=== PATIENT | female | born 1990 | race Caucasian/White ===

== ENCOUNTER → 2018-03-16 10:23 | Outpatient (CLI) | payer OTHER, SELFPAY ==
[2018-03-16 09:36] VITALS: BMI 32.5
[2018-03-16 11:19] LABS: Absolute Lymphocyte Count 1.86 X10^3/ul (0.83-4.51); Absolute Neutrophil Count 6.1 X10^3/uL (2.0-7.7); Basophil# 0.01 X10^3/uL; Basophil% 0.1 % (0-1); Eosinophil# 0.04 X10^3/uL; Eosinophils% 0.5 % (0-5); Hematocrit 38.1 % (37-47); Hemoglobin 12.9 g/dl (12.0-15.0); Lymphocyte # 1.86 X10^3/ul (4.0); Lymphocyte % 21.3 % (19-41); Mean Corp Hgb Conc 33.9 g/gl (32-36); Mean Corpuscular Hgb 30.6 pg (27.0-32.0); Mean Corpuscular Volume 90.5 fL (81-99); Mean Platelet Vol. 9.9 fl (6.2-12.0); Monocyte# 0.71 X10^3/uL; Monocyte% 8.1 % (0-10); Neutrophil # 6.12 X10^3/uL (2.7-7.7); Neutrophil % 69.9 % (47-70); Platelet Count 219 K/mm3 (150-450); RBC Distribution Width CV 13.3 % (11.6-14.6); RBC Distribution Width SD 43.8 fl (35.1-43.9); Red Blood Count 4.21 M/mm3 (4.2-5.4); White Blood Count 8.8 K/mm3 (4.4-11.0)
[2018-03-16 11:24] LABS: POSITIVE COUNT NO; POSITIVE DIFFERENTIAL NO; POSITIVE MORPHOLOGY NO
[2018-03-16 11:35] LABS: Glucose Challenge Gest 1H 50g 88 mg/dL (70-140)
[2018-03-16 12:40] LABS: HIV - WCH Non-Reactive (Nonreactive); Rubella IgG 100.9 IU/mL
[2018-03-16 20:08] LABS: Chlamydia Trachomatis by PCR Negative (Negative); Neisserai gonorrhoeae by PCR Negative (Negative); Probe Check PASS; Sample Adequacy Control PASS; Specimen Processing Control PASS
[2018-03-17 04:55] LABS: Rapid Plasmin Reagin (RPR) NONREACTIVE (NONREACTIVE)
[2018-03-17 09:16] LABS: HEPATITIS B SURFACE AG Negative (Negative)
[2018-03-21 10:55] LABS: HPV Reflexed? NOT INDICATED
--- OUTSIDE RECORDS SUMMARY | 2018-05-02 05:26 | XMS RPT_ITS ---
:1990 Author Organization OHIP Care Team Providers Name Role Phone Jessica Mejia Attending Unavailable Cebul IIIMahad Referring Unavailable Jessica Mejia Attending Unavailable Cebul IIIMahad Primary Care Unavailable Jessica Mejia Referring Unavailable Bertha Mcgovern Attending Unavailable Cebul IIIMahad Referring Unavailable Bertha Mcgovern Attending Unavailable Mahad Gutierrez III Primary Care Unavailable PROBLEMS PROBLEMS DATE TYPE CONDITION / CODE ATTENDING STATUS SOURCE 04/14/2018 Unknown Z3A.14 - 14 weeks Froilan Active [facility] gestation of [facility] / Hospital Z3A.14(ICD-10) Repository 04/14/2018 Unknown Z34.02 - Froilan, Active [place] Encounter for General acute hospital normal first Repository , second trimester / Z34.02(ICD-10) 03/16/2018 Unknown Z34.90 - Jessica Mejia Active [place] Encounter for [facility] supervision of Hospital normal , Repository unspecified, unspecified trimester / Z34.90(ICD-10) 03/16/2018 Unknown Z68.32 - Body [place], Jessica Active [place] mass index (BMI) [facility] 32.0-32.9, critical access hospital Hospital / Z68.32(ICD-10) Repository PROCEDURES PROCEDURES No Procedure Records FoundRESULTS RESULTS ANTIBODY SCREEN Collected: 04/14/2018 Status: F Source: WARNER 10:38 AM [facility] REPOSITORY TYPE CODE TESTS RESULT OUT OF RANGE REFERENCE UNITS LAB B100.4000 Normal Antibody NEGATIVE Screen Performed By: #### B100.4000 #### [facility] [address] [place], [address] TIME CLOCK MECHANIC OFFICE VISIT Observed: 04/14/2018 Status: F Source: WARNER REPORT 10:24 AM [facility] REPOSITORY [facility] [address] [place] [address] OFFICE VISIT Date of Service: 04/14/18 MR#: [id number] Acct: [id number] Name: ELISE RAY Rep #: [id number] : 1990 Provider: Bertha Mcgovern MD Age/Sex: 27/F [place] [facility] [place]: Signed Intake Vital Signs04/14/18 Body Mass Index (BMI) 32.5 04/14/18 Height 5 ft 7 in 04/14/18 Weight: 213 lb 04/14/18 Body Mass Index (BMI) 33.3 04/14/18 Blood Pressure 122/78 H Intake Visit Reasons: 14 WEEK OB Chief Complaint: est ob Cigarette Tipper Required: No Is patient in pain?: No Allergies No Known Allergies Allergy (Verified 04/14/18 09:47) Medications vitamin#30 30 mg iron-10 mg iron-folic acid 1 mg- omg3 capsule cap PO cap 03/16/18 [History Confirmed 04/14/18] Last Menstral Period: 01/02/18 Zika: Zika virus screening: Negative : No PFSH PFSH Surgical History History of appendectomy (Acute) Family History Grandfather Cancer bone Father Anemia Social History Smoking Status: Never smoker alcohol intake: never substance use type: does not use caffeine: No what type of physical activity do you participate in: walking seatbelt use: always do you feel safe at home: Yes 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 unable to give urine specimen for 2 dip OB Visit SURI Calculator Estimated Delivery Date 10/09/18 Based on Ultrasound Date 03/16/18 Current WG 14w 4d Number 1 Expected Delivery Route/Plan Specific Issue/Plans flu vaccine: given minichart given: given tdap vaccine: [] rhogam: [] LARC form signed: [] labor support person: Will pain management: [] cut cord/dad catch: [] : [] PP control planned: [] special requests: [] Initial Weight: 208 lb Date Weight BP Urine PrFHR FuHt Pres MoCTX DilationFetal StVisit NoProviderComments E ot v te GA G Effac lucose ed Visit Notes Visit Date: 04/14/18 no vb lof charlene Mcgovern MD on 04/14/18 Visit Date: 03/16/18 No visit notes to display Diagnostics Diagnostics Labs Blood Type A POSITIVE 03/16/18 Antibody Screen NEGATIVE 03/16/18 Hct 38.1 % (37-47) 03/16/18 Hgb 12.9 g/dl (12.0-15.0) 03/16/18 Rubella IgG Antibody 100.9 IU/mL 03/16/18 RPR NONREACTIVE (NONREACTIVE) 03/16/18 Hep Bs Antigen Negative (Negative) 03/16/18 Chlam trachomat DNA PCR Negative (Negative) 03/16/18 N.gonorrhoeae DNA (PCR) Negative (Negative) 03/16/18 Glucose 1 Hr 50 gm 88 mg/dL (70-140) 03/16/18 Details: HIV: Urine Culture: Sequential Screen: NIPT Screen: Assessment AND Plan Problems 1. 14 weeks gestation of Z3A.14 Plans NIPT. MFM anatomy US ordered 2. Encounter for supervision of normal first in second trimester Z34.02 PRR SURI 10/09/18 Spouse Will Plan ACOG trimester education reviewed and updated. see problem list details for updated plan management information and see below for orders placed at this visit. GA appropriate handout given. Coding Level of Care Code OB Routine Diagnoses 14 weeks gestation of Z3A.14 Weeks of gestation: 14 weeks Encounter for supervision of normal first in second trimester Z34.02 Trimester: second trimester 04/14/18 1024 <Electronically signed by Bertha Mcgovern MD> Date Bertha Mcgovern MD Cosigner Signature: Date (if applicable) CC: TIME CLOCK MECHANIC OFFICE VISIT Observed: 03/16/2018 Status: F Source: WARNER REPORT 11:11 AM [facility] REPOSITORY [facility] [address] [place] [address] OFFICE VISIT Date of Service: 03/16/18 MR#: [id number] Acct: [id number] Name: ELISE RAY Chalino Rep #: [id number] : 1990 Provider: BRIGIDO Mejia Age/Sex: 27/F [place] [facility] [place]: Signed Intake Vital Signs03/16/18 Height 5 ft 7 in 03/16/18 Weight: 208 lb 03/16/18 Body Mass Index (BMI) 32.5 03/16/18 Blood Pressure 122/58 H Intake Visit Reasons: NOB - LMP JAN 02 Chief Complaint: NEW OB Cigarette Tipper Required: No Is patient in pain?: No Allergies No Known Allergies Allergy (Unverified 03/16/18 09:36) Medications vitamin#30 30 mg iron-10 mg iron-folic acid 1 mg- omg3 capsule cap PO cap 03/16/18 [History Confirmed 03/16/18] Last Menstral Period: 01/02/18 Zika: Zika virus screening: Negative : No PFSH PFSH Surgical History History of appendectomy (Acute) Family History Grandfather Cancer bone Father Anemia Social History Smoking Status: Never smoker alcohol intake: never substance use type: does not use caffeine: No what type of physical activity do you participate in: walking seatbelt use: always do you feel safe at home: Yes 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 OB Visit SURI Calculator Estimated Delivery Date 10/09/18 Based on Ultrasound Date 03/16/18 Current WG 10w 3d Number 1 Expected Delivery Route/Plan Specific Issue/Plans flu vaccine: given minichart given: given tdap vaccine: [] rhogam: [] LARC form signed: [] labor support person: Will pain management: [] cut cord/dad catch: [] : [] PP control planned: [] special requests: [] Initial Weight: Not Recorded Date Weight BP Urine PrFHR FuHt Pres MoCTX DilationFetal StVisit NoProviderComments E ot v te GA G Effac lucose ed Menstrual History Last Menstral Period: 01/02/18 Reported LMP: definite Normal amount/duration: Yes On hormonal BC at conception: No hCG+: 02/06/18 Antepartum Record Genetic Screening: Congenital Heart Defect: Other, Neural Tube Defect: Other, Hemoglobinopathy Or Carrier: Other, Cystic Fibrosis: Other, Chromosome Abnormality: Other, Gallito-Sachs: Other, Hemophilia: Other, Intellectual Disability/Autism: Other, Recurrent Loss/Stillbirth: Patient (Patient mother stillbirth), Other Structural Defect: Other, Other Genetic Disease: Other, Maternal Metabolic Disorder: Other Infection History: Live with someone with TB or Exposed to TB: No, Patient or Partner has history of Genital Herpes: No, Rash or Viral illness since last mentrual period: No, Prior GBS-Infected child: No, History of STD: No, HIV Infection: No, History of Hepatitis: No, Recent travel outside of [place]: No, Concern for Hep exposure: No, Varicella immune: Yes (had chicken pox) Medical History Medical History: Positive: Operations/hospitalizations (appendix >10 yr ago), Negative: Diabetes, Hypertension, Heart disease, Auto-immune disorder, Kidney disease/UTI, Neurologic/epilepsy, Psychiatric, Depression/ depression, Hepatitis/liver disease, Varicosities/phlebitis, Thyroid dysfunction, Trauma/domestic violence, History of blood transfusions, D (Rh) Sensitized, Pulmonary (e.g.,TB,Asthma), Seasonal allergies, Drug/latex allergies/reactions, Breast, Cemetery Keeper surgery, Anesthetic complications, History of abnormal pap, Uterine anomaly/tamir, Infertility, Anti-retroviral treatment, Relevant family history, Other Comments: Mom with chronic anemia ROS Const Reports as per HPI Card Denies chest pain, Denies shortness of breath Resp Denies shortness of breath GI Denies change in stools Denies difficulty urinating, Denies abnormal vaginal bleeding, Denies vaginal odor, Denies vaginal itching, Denies vaginal discharge Exam Const General: cooperative, healthy appearing, well developed Nutritional Appearance: average body habitus, well nourished Orientation: oriented x3 Neck Neck: normal visual inspection Neck mass: No Thyroid: thyroid normal Chest Chest palpation AND inspection: normal inspection of the chest Breast inspection: normal inspection of the breasts, normal inspection of the axillae Resp Effort AND Inspection: normal respiratory effort GI Inspection: normal to inspection Palpation: soft, nontender, no masses External Female Exam: normal external appearance, normal appearance of the urethra Urethra: normal appearance of the urethra Speculum Exam - Vagina: normal appearance of the vagina, normal vaginal discharge Speculum Exam - Cervix: normal appearance of the cervix, closed cervix, other (thin prep pap with reflex HPV, GCC collected) Bimanual Exam- Vagina AND Uterus: normal bimanual exam, uterine shape normal, uterine size normal (10 weeks) Bimanual Exam- Adnexa, other: normal adnexae, no adnexal masses, adnexae non-tender Other: US per AGA CRL 31.8mm 10w 3d SURI 10/09/18 Skin General: no rashes or lesions noted, turgor normal Assessment AND Plan Problems 1. Encounter for supervision of normal first in first trimester Z34.01 Grav 1 SURI 10/09/18 Spouse Will 2. 10 weeks gestation of Z3A.10 Plans NIPT. MFM anatomy US ordered Orders Orders: Coding Level of Care Code Off vis,new,level 4 Diagnoses Encounter for supervision of normal first in first trimester Z34.01 Trimester: first trimester 10 weeks gestation of Z3A.10 Weeks of gestation: 10 weeks 03/16/18 1111 <Electronically signed by Jessica ZAVALA> Date Jessica ZAVALA Cosigner Signature: Date (if applicable) CC: Observed: 03/16/2018 Status: F Source: ELWELL CULTURE, URINE 11:07 AM [facility] REPOSITORY Urine Culture Culture exhibits no growth. Performed By: #### M100.0650 #### [facility] [place], [address] CBC W/DIFF, AUTOMATED Collected: 03/16/2018 Status: F Source: ELWELL 10:33 AM [facility] REPOSITORY TYPE CODE TESTS RESULT OUT OF RANGE REFERENCE UNITS LAB L100.1000 4.4-11.0 K/mm3 Normal WBC 8.8 LAB L100.1200 4.2-5.4 M/mm3 Normal RBC 4.21 LAB L100.1300 12.0-15.0 g/dl Normal HGB 12.9 LAB L100.1400 37-47 % Normal HCT 38.1 LAB L100.1500 81-99 fL Normal MCV 90.5 LAB L100.1600 27.0-32.0 pg Normal MCH 30.6 LAB L100.1700 32-36 g/gl Normal MCHC 33.9 LAB L100.1810 11.6-14.6 % Normal RDW CV 13.3 LAB L100.1820 35.1-43.9 fl Normal RDW SD 43.8 LAB L100.1900 150-450 K/mm3 Normal PLT 219 LAB L100.2000 6.2-12.0 fl Normal MPV 9.9 LAB L100.2100 47-70 % Normal NEUT% 69.9 LAB L100.2200 19-41 % Normal LY% 21.3 LAB L100.2300 0-10 % Normal MONO% 8.1 LAB L100.2400 0-5 % Normal EO% 0.5 LAB L100.2500 0-1 % Normal BASO% 0.1 LAB L100.2550 0.0-0.9 % Normal IM GRAN % 0.100 Result Comment: IG% - Immature Granulocytes (promyelocytes, myelocytes and metamyelocytes) > 1% indicates that a LEFT SHIFT is Present. LAB L100.2620 2.0-7.7 X10 3/uL Normal Absolute Neut 6.1 LAB L100.2720 0.83-4.51 X10 3/ul Normal Absolute Lymph 1.86 Performed By: #### L100.0100 #### [facility] [address] [place], [place], [address] GLUCOSE CHALLENGE GEST Collected: 03/16/2018 Status: F Source: WARNER 1H 50G 10:33 AM [facility] REPOSITORY TYPE CODE TESTS RESULT OUT OF RANGE REFERENCE UNITS LAB L501.0250 70-140 mg/dL Normal GLU GEST 88 50g 1H Performed By: #### L501.0250 #### [facility] [address] [place], [place], [address] RUBELLA IGG Collected: 03/16/2018 Status: F Source: WARNER 10:33 AM [facility] REPOSITORY TYPE CODE TESTS RESULT OUT OF RANGE REFERENCE UNITS LAB L509.4000 IU/mL Normal Rubella IgG 100.9 Result Comment: Antibody results Interpretation of Immune Status < 5 IU/ml Presumed Non-immune 5 - < 10 IU/ml Equivocal > or = 10 IU/ml Presumed Immune Performed By: #### L509.4000, L3890.6005 #### [facility] [address] [place], [place], [address] HIV - [facility] Collected: 03/16/2018 Status: F Source: WARNER 10:33 AM [facility] REPOSITORY TYPE CODE TESTS RESULT OUT OF RANGE REFERENCE UNITS LAB L3890.6005 Nonreactive Normal HIV - [facility] Non-Reactive Performed By: #### L509.4000, L3890.6005 #### [facility] [address] [place], [place], [address] TYPE AND SCREEN Collected: 03/16/2018 Status: F Source: WARNER 10:33 AM [facility] REPOSITORY Order Comment: Reason for Type AND Screen/Red Cells: TYPE CODE TESTS RESULT OUT OF RANGE REFERENCE UNITS LAB B10.0800 A Normal BLOOD TYPE GEL POSITIVE LAB B100.4000 Normal Antibody NEGATIVE Screen Performed By: #### B101.7450 #### [facility] [address] [place], [place], [address] RAPID PLASMIN REAGIN Collected: 03/16/2018 Status: F Source: ELWELL (RPR) 10:33 AM [facility] REPOSITORY TYPE CODE TESTS RESULT OUT OF REFERENCE UNITS RANGE LAB L700.5000 NONREACTIVE NONREACTIVE Normal RPR Performed By: #### L700.5000 #### [facility] [place], [place], [address] HEPATITIS B SURFACE Collected: 03/16/2018 Status: F Source: WARNER AG 10:33 AM [facility] REPOSITORY TYPE CODE TESTS RESULT OUT OF RANGE REFERENCE UNITS LAB L3100.0400 Negative Normal HB Negative SURF AG Result Comment: Performed at: - [facility] [id number] Cupola Tender: Leodan Morales PhD, Phone: [phone] Performed By: #### L3100.0390 #### [facility] (refer to report for specific site) refer to report for address and phone number CT/NG WCH BY PCR Collected: 03/16/2018 Status: F Source: WARNER 9:20 AM [facility] REPOSITORY TYPE CODE TESTS RESULT OUT OF RANGE REFERENCE UNITS LAB L8200.2100 Negative Normal Chlam Negative Trac PCR LAB L8200.2200 Negative Normal NG by Negative PCR Performed By: #### L8200.2000 #### [facility] [address] [place], [address] PAP I-G W/RFX Collected: 03/16/2018 Status: F Source: WARNER HRHPV-APTIMA 9:20 AM [facility] REPOSITORY Order Comment: CYTOLOGY INFORMATION: - CLINICAL INFORMATION: - DATE LMP/MENOPAUSE: - COLLECTION VIAL: Thin Prep Vial - SCHOOL RESOURCE OFFICER SOURCE: CERVICAL - COLLECTION TECHNIQUE: BRUSH/SPATULA Specimen Comment: [id number] Specimen Comment: Source.............Cervix Specimen Comment: No. of containers..01 ThinPrep Vial TYPE CODE TESTS RESULT OUT OF RANGE REFERENCE UNITS LAB L7400.0800 . Normal DIAGN Comment Result Comment: NEGATIVE FOR INTRAEPITHELIAL LESION AND MALIGNANCY. LAB L7400.0900 . Normal ADEQ Comment Result Comment: Satisfactory for evaluation. Endocervical and/or squamous metaplastic cells (endocervical component) are present. LAB L7400.1400 . Normal PERFORM Comment Result Comment: Abena Waldron, Senior Data Scientist (ASCP) LAB L7400.2575 . Normal TEST METHOD Comment Result Comment: This liquid based ThinPrep(R) pap test was screened with the use of an image guided system. LAB L7400.2600 . Normal . COMM LAB L7400.2700 . Normal PAPSMR Comment Result Comment: The Pap smear is a screening test designed to aid in the detection of premalignant and malignant conditions of the uterine cervix. It is not a diagnostic procedure and should not be used as the sole means of detecting cervical cancer. Both false-positive and false-negative reports do occur. LAB L7400.2800 . Normal HPV RFLX Comment Result Comment: The HPV DNA reflex criteria were not met with this specimen result therefore, no HPV testing was performed. Performed at: [address] [id number] Cupola Tender: Marielos Aldana MD, Phone: [phone] Performed By: #### L7400.0353 #### [facility] (refer to report for specific site) refer to report for address and phone number ALLERGIES ALLERGIES DATE TYPE / CODE NAME / CODE REACTION SEVERITY SOURCE 04/14/2018 Drug No Known Unknown [facility] Allergy/4160 Allergies/F00 Hospital [address]686(SNOMED [id number](RXNOR Repository CT) M) ENCOUNTERS ENCOUNTERS ADMIT/DISCHARGE ACCOUNT ADMITTING ENCOUNTER LOCATION SOURCE NUMBER CLASS 04/14/2018 [id number] Ambulatory [facility] [place] 3 [facility] ing:PAVLAB Repository 04/14/2018/ [id number] Ambulatory BMSBuilding:B [place] 9 [facility] Repository 03/16/2018 [id number] Ambulatory [facility] [place] 6 [facility] ing:PAVLAB Repository 03/16/2018/ [id number] Ambulatory BMSBuilding:B [place] 8 0 [facility] Repository PAYERS PAYERS ENCOUNTER GUARANTOR PAYER SUBSCRIBER SOURCE 04/14/2018 ELISE L Primary ELISE L [place] [id number] W Insurance:MEDICAL LADRACHDOB: [id number] Number: Repository [place], [place] [id number]: ([phone]) Date:4240-39-64NP [phone] ( [address] [address]CK: 04/14/2018 Secondary NOT GIVENUNK [place] Insurance:SELF PAY [facility] Number: Effective Repository Date:2018-04-14 04/14/2018 ELISE L Primary ELISE L [place] [id number] W Insurance:MEDICAL LADRACHDOB: [facility] [id number] Number: Repository [place], [place] [id number] [id number]: [phone]) Date:8478-77-79YU [phone] ( [address] [address]WT: 04/14/2018 Secondary NOT GIVENUNK [place] Insurance:SELF PAY [facility] Number: Effective Repository Date:2018-04-14 03/16/2018 ELISE L Primary ELISE L [place] [id number] W Insurance:MEDICAL LADRACHDOB: [facility] [id number] Number: Repository WILLYKIM [place] [id number]: [phone]) Date:5460-46-59QK [phone] () [address] [address]LF: 03/16/2018 Secondary NOT GIVENUNK [place] Insurance:SELF PAY [facility] Number: Effective Repository Date:2018-03-16 03/16/2018 ELISE L Primary ELISE L [place] [id number] [address] Insurance:[facility]: [facility] [id number] Number: Repository RDWARNER me [id number] [id number]: ([phone]) Date:4368-88-33KN [phone] () [address] [address]JA: 03/16/2018 Secondary NOT GIVENUNK [place] Insurance:SELF PAY [facility] Number: Effective Repository Date:2018-03-16
== END ==
PROVIDERS: Family Provider Family Medicine; PCP Family Medicine; Referring Provider Nurse Practitioner Women's Health; Visit Provider Nurse Practitioner Women's Health
DX: Z34.90 Encounter for supervision of normal pregnancy, unspecified, unspecified trimester (principal); Z12.4 Encounter for screening for malignant neoplasm of cervix
CPT/HCPCS: 36415; 82950; 85025; 86592; 86703; 86762; 86850; 86900; 87086; 87340; 87491; 87591; 87624; 88175; G0145

== ENCOUNTER → 2018-04-14 10:33 | Outpatient (CLI) | payer OTHER, SELFPAY ==
[2018-04-14 09:47] VITALS: BMI 32.5
== END ==
PROVIDERS: Family Provider Family Medicine; PCP Family Medicine; Visit Provider Obstetrics & Gynecology
DX: Z34.90 Encounter for supervision of normal pregnancy, unspecified, unspecified trimester (principal)
CPT/HCPCS: 36415; 86850

== ENCOUNTER → 2018-04-27 15:04 | Outpatient (CLI) | payer OTHER, SELFPAY ==
[2018-04-14 09:47] VITALS: BMI 32.5
== END ==
PROVIDERS: Family Provider Family Medicine; PCP Family Medicine; Visit Provider Nurse Practitioner Women's Health
DX: Z34.82 Encounter for supervision of other normal pregnancy, second trimester (principal)
CPT/HCPCS: 36415

== ENCOUNTER → 2018-07-07 12:01 | Outpatient (CLI) | payer OTHER, SELFPAY ==
[2018-07-07 11:28] VITALS: BMI 32.5
[2018-07-07 13:22] LABS: Absolute Lymphocyte Count 2.22 X10^3/ul (0.83-4.51); Absolute Neutrophil Count 9.8 X10^3/uL (2.0-7.7); Basophil# 0.02 X10^3/uL; Basophil% 0.2 % (0-1); Eosinophil# 0.06 X10^3/uL; Eosinophils% 0.5 % (0-5); Hematocrit 35.4 % (37-47); Hemoglobin 11.7 g/dl (12.0-15.0); Lymphocyte # 2.22 X10^3/ul (4.0); Lymphocyte % 17.1 % (19-41); Mean Corp Hgb Conc 33.1 g/gl (32-36); Mean Corpuscular Hgb 30.6 pg (27.0-32.0); Mean Corpuscular Volume 92.7 fL (81-99); Mean Platelet Vol. 9.7 fl (6.2-12.0); Monocyte# 0.91 X10^3/uL; Neutrophil # 9.78 X10^3/uL (2.7-7.7); Platelet Count 226 K/mm3 (150-450); RBC Distribution Width SD 43.8 fl (35.1-43.9); Red Blood Count 3.82 M/mm3 (4.2-5.4)
[2018-07-07 13:29] LABS: POSITIVE COUNT NO; POSITIVE DIFFERENTIAL NO; POSITIVE MORPHOLOGY NO
[2018-07-07 13:39] LABS: Glucose Challenge Gest 1H 50g 114 mg/dL (70-140)
== END ==
PROVIDERS: Family Provider Family Medicine; PCP Family Medicine; Referring Provider Obstetrics & Gynecology; Visit Provider Obstetrics & Gynecology
DX: Z34.00 Encounter for supervision of normal first pregnancy, unspecified trimester (principal); Z3A.26 26 weeks gestation of pregnancy
CPT/HCPCS: 36415; 82950; 85025; 86850; 86900

== ENCOUNTER 2018-07-27 17:47 | Outpatient (CLI) | payer OTHER, SELFPAY ==
[2018-07-18 10:54] VITALS: BMI 32.5
[2018-07-27 18:08] VITALS: BMI 37.8
[2018-07-27 18:51] LABS: Fetal Fibronectin POSITIVE
--- NOTE | 2018-07-27 19:32 | OB.TRI.HP_ITS ---
- Problem List (1) labor Status: Acute Comment: transport summa 29 weeks (2) DNA screening/uninformative SNP pattern Status: Acute Comment: recommend q 4 week growth us and weekly nst after 32 weeks (3) Abnormal screening blood test for Down syndrome in first trimester Status: Acute Comment: genetic screening, mfm consult (4) Status: Acute Qualifiers: Comment: NIPT-inconclusive. MFM anatomy done 05/15/18. Growth US on 06/15/18 overall ok, continue serial growth US and 28 week follow-up on placenta location. (5) Supervision of normal first Status: Acute Qualifiers: Comment: PRR SURI 10/09/18 girl yvon Spouse Will History of Present Illness Date of Service: 07/27/18 Was patient seen by the physician?: Yes Reason For Visit: R/O PRE TERM LABOR Date of Service: 07/27/18 Final SURI: 10/09/18 Gestational age: 29 Weeks and 3 Days History of Present Illness: 27-year-old G1, P0 at 29 weeks 3 days presents with labor. Patient had an ultrasound in the office today for follow-up of low-lying placenta and inconclusive NIPT screening that showed shortened cervical length of 7 mm. She has a positive fibronectin and is having contractions every 2 to 5 minutes that are not felt but picked up on the monitor. SHe denies any vaginal bleeding or loss of fluid or recent intercourse. Allergies No Known Allergies Allergy (Verified 07/18/18 10:53) - Pertinent Past Medical History Surgical History: Past Surgical History (Last Reviewed 07/18/18 @ 10:54 by Lesley Garcia) History of appendectomy Laboratory Studies: Laboratory Tests 07/27/18 Range/Units 18:04 Fibronectin POSITIVE H Review of Systems Constitutional: Denies: Fever, Malaise Eyes: Denies: Blurred vision, Vision Change HEENT: Denies: Head Aches, Visual Changes Cardiovascular: Denies: Chest Pain, Palpitations Respiratory: Denies: Cough, Shortness of Breath, Wheezing Gastrointestinal: Denies: Abdominal Pain, Diarrhea, Nausea, Vomiting Genitourinary: Denies: Dysuria, Hematuria Musculoskeletal: Denies: Joint Pain, Muscle pain Skin: Denies: Lesions, Rash Neurological: Denies: Blurred vision, Focal weakness, Headaches Psychiatric: Denies: Anxiety, Depression Endocrine: Denies: Heat/ Cold Intolerance Hematologic/ Lymphatic: Denies: Easy Bruising, Easy Bleeding Physical Exam General: Alert, Cooperative, No apparent distress HEENT: Atraumatic, Normocephalic. Negative for: Thyromegaly, Lymphadenopathy Cardiovascular: Regular rate Lungs: Normal air movement Abdomen: Soft, Non Tender, Gravid Neurological: Deep Tendon Reflexes 2+/4 and Symmetrical, Neuro grossly intact. Negative for: Clonus STAFF FORESTER: Normal external genitalia. Negative for: Vulvar lesions Estimated gestational size: Appropriate for gestational size Presentation: Cephalic Cervix Dilation (cm): 1 Station: -3 Effacement (%): 40 NST - FHR Rate Baby A Baseline: 150 Variability:: Moderate Accelerations:: 15 x 15 Decelerations:: None NST Reactive:: Yes FHR Category:: Category I Uterine Activity:: q2-5 Impression/Plan 27-year-old G1, P0 at 29 weeks 3 days with labor 1. labor?begin Indocin for toco lysis and plan transport to [facility]. 2. Prematurity?Celestone given. Magnesium sulfate for neuro protection 3. GBS culture collected and ampicillin 2 g started. 4. Vertex 5. NIPT inconclusive?declined amniocentesis but normal anatomy scan. Low-lying placenta resolved.
[2018-07-27] MEDS: Betamethasone/Betamethasone 30 MG/5 ML Vial 12 MG IM (19:43)
[2018-07-27] MEDS: Indomethacin 25 MG Capsule 50 MG PO (19:47)
[2018-07-27] MEDS: Lactated Ringers 1,000 ML 15 ML IV (19:55)
[2018-07-27] MEDS: Magnesium Sulfate 4gm/100mL 4 GM/100 ML IV.SOLN. IV ×2 (19:57→20:11)
[2018-07-27] MEDS: Magnesium Sulfate 20 GM/500 ML BAG IV (20:31)
[2018-07-27] MEDS: 0.9% Saline Lock 10 ML Syringe IV (20:31)
[2018-07-27 20:34] LABS: Absolute Lymphocyte Count 3.01 X10^3/ul (0.83-4.51); Absolute Neutrophil Count 10.9 X10^3/uL (2.0-7.7); Basophil# 0.01 X10^3/uL; Basophil% 0.1 % (0-1); Eosinophil# 0.09 X10^3/uL; Eosinophils% 0.6 % (0-5); Hematocrit 38.4 % (37-47); Hemoglobin 13.1 g/dl (12.0-15.0); Lymphocyte # 3.01 X10^3/ul (4.0); Lymphocyte % 19.6 % (19-41); Mean Corp Hgb Conc 34.1 g/gl (32-36); Mean Corpuscular Volume 90.8 fL (81-99); Mean Platelet Vol. 9.9 fl (6.2-12.0); Monocyte# 1.25 X10^3/uL; Monocyte% 8.1 % (0-10); Neutrophil # 10.94 X10^3/uL (2.7-7.7); Neutrophil % 71.3 % (47-70); Platelet Count 251 K/mm3 (150-450); RBC Distribution Width SD 42.6 fl (35.1-43.9); Red Blood Count 4.23 M/mm3 (4.2-5.4); White Blood Count 15.4 K/mm3 (4.4-11.0)
[2018-07-27 20:43] LABS: ALB/GLOB Ratio 0.7 RATIO (0.9-2.4); AST(SGOT) 18 U/L (15-37); Alanine Aminotransfer ALT/SGPT 26 U/L (13-56); Albumin, Serum 2.9 g/dL (3.2-5.0); Alkaline Phosphatase 86 U/L (45-117); Anion Gap 7 (5-15); BUN 8 mg/dL (7-18); BUN/Creat Ratio 12.2 RATIO (10-20); Calcium,Total 8.9 mg/dL (8.5-10.1); Chloride 107 mmol/L (98-107); Creatinine, Serum 0.66 mg/dL (0.55-1.02); EST Glomerular Filtration Rate 113 mL/min (>60); Est Glom Filt Rate - Afr Amer 137 mL/min (>60); Estimated Creatinine Clearance 123.41 ml/min; Globulin 4.2 g/dL (2.2-4.2); Glucose 84 mg/dL (74-106); POSITIVE COUNT NO; POSITIVE DIFFERENTIAL NO; POSITIVE MORPHOLOGY NO; Potassium 3.2 mmol/L (3.5-5.1); Protein, Total 7.1 g/dL (6.4-8.2); Sodium Level 139 mmol/L (136-145)
[2018-07-27 21:37] LABS: Group B Strep DNA By PCR Negative (Negative); Internal Control PASS; Probe Check PASS; Specimen Processing Control PASS
== END 2018-07-27 21:22 | disposition short-term general hospital (02) ==
LOC: WPOUT 17:48 → WP 17:49
PROVIDERS: Family Provider Family Medicine; PCP Family Medicine; Referring Provider Obstetrics & Gynecology; Visit Provider Obstetrics & Gynecology
DX: O60.03 Preterm labor without delivery, third trimester (principal); O44.43 Low lying placenta NOS or without hemorrhage, third trimester; O35.1XX0 Maternal care for (suspected) chromosomal abnormality in fetus, not applicable or unspecified; Z3A.29 29 weeks gestation of pregnancy
CPT/HCPCS: 96365; 96366; 96367; 36415; 59025; 59050; 80053; 82731; 85025; 87081; 87653; 94760; 96372; 99218; J7120; A4216; G0378; J0702

== ENCOUNTER 2018-08-18 15:55 | Inpatient (IN) | payer OTHER, SELFPAY ==
[2018-08-18 13:23] VITALS: BMI 37.8
[2018-08-18 16:06] VITALS: BMI 38.6
--- NOTE | 2018-08-18 16:06 | US_ITS ---
STUDY: SECOND AND THIRD TRIMESTER OBSTETRICAL ULTRASOUND - LIMITED REASON FOR EXAM: Female, 27 years old. growth PRIOR ULTRASOUND: None. TECHNIQUE: Transabdominal ultrasound evaluation was performed. FINDINGS: There is a single intrauterine fetus. The fetus is in a cephalic presentation. There is demonstrated cardiac activity with a heart rate of 155 bpm. There is a normal amniotic fluid volume. The largest amniotic fluid pocket measures 5.4 cm. The amniotic fluid index (HOSSEIN) is 16.2 cm. The placenta is posterior in location and is not low lying. There are Grade 1 placental changes. Evaluation of the cervix is limited. The cervix measures 1.6 cm in length. BIOMETRY: BPD: 8.5 cm: 34 weeks, 2 days HC: 30.69 cm: 34 weeks, 2 days AC: 30 cm: 34 weeks, 0 days FL: 6.58 cm: 34 weeks, 0 days age by current US: 34 weeks, 1 days. SURI by current US: 09/28/2018. Estimated weight: 2326 grams, +/- 340 grams, 8 percentile. US/OB Limited With Biometrics IMPRESSION: Single live intrauterine gestation approximately 34 weeks and 1 day based on the current ultrasound. Electronically Signed: Wesley Malhotra, at 21:26 EDT Tel , Service support ,
[2018-08-18 17:16] LABS: Hematocrit 36.4 % (37-47); Hemoglobin 12.4 g/dl (12.0-15.0); Mean Corp Hgb Conc 34.1 g/gl (32-36); Mean Corpuscular Hgb 30.8 pg (27.0-32.0); Mean Corpuscular Volume 90.3 fL (81-99); Platelet Count 241 K/mm3 (150-450); RBC Distribution Width CV 12.7 % (11.6-14.6); RBC Distribution Width SD 41.5 fl (35.1-43.9); Red Blood Count 4.03 M/mm3 (4.2-5.4); White Blood Count 14.9 K/mm3 (4.4-11.0)
[2018-08-18 17:22] LABS: Scan Indicated on CBC? Y/N NO
[2018-08-18 17:36] LABS: Bacteria 0 SEEN /hpf (None Seen); Mucous, Urine 0 SEEN /hpf (<or=2+)
[2018-08-18 17:44] LABS: Color, Urine Yellow (Yellow); Glucose, Dipstick Normal (Normal); Ketone-Dipstick 5 mg/dl (Negative); Leukocyte Esterase-Dipstick 25 /ul (Negative); Nitrite-Dipstick Negative (Negative); Occult Blood-Urine 250 /ul (Negative); Protein-Dipstick Negative (Negative); Urine Bilirubin Dipstick Negative (Negative); Urine Clarity Clear (Clear); Urine Urobilinogen Normal (Normal)
[2018-08-18 17:59] LABS: Red Blood Cells-Urine 0-5 SEEN /hpf (0-5); Squamous Epithelial Cells - UA 0-5 SEEN /hpf (5-10); White Blood Cells 0-5 SEEN /hpf (0-5)
[2018-08-18] MEDS: Lactated Ringers 1,000 ML 15 ML IV (18:00)
[2018-08-18] MEDS: NIFEdipine 30 MG Tablet PO (18:29)
[2018-08-18] MEDS: Betamethasone/Betamethasone 30 MG/5 ML Vial 12 MG IM (18:32)
--- NOTE | 2018-08-18 22:06 | PCM.HP.OB ---
- Problem List (1) labor Status: Acute Qualifiers: Comment: transport summa 29 weeks/cervix funneled (2) DNA screening/uninformative SNP pattern Status: Acute Comment: recommend q 4 week growth us and weekly nst after 32 weeks (3) Abnormal screening blood test for Down syndrome in first trimester Status: Acute Comment: genetic screening, mfm consult (4) Status: Acute Qualifiers: Comment: NIPT-inconclusive. MFM anatomy done 05/15/18. Growth US on 06/15/18 overall ok, continue serial growth US and 28 week follow-up on placenta location. (5) Supervision of normal first Status: Acute Qualifiers: Comment: PRR SURI 10/09/18 girl yvon Spouse Will History Date of Admission: 08/18/18 Final SURI: 10/09/18 Gestational age: 32 Weeks and 4 Days History of this : This is a 27 year-old, , at 32 and 4 weeks gestational age presents with pelvic pressure and cervical dilation. She was admitted for threatened labor at 29 weeks due to cervical shortening and of positive fibronectin was given steroids at that time. After 48 hours of no cervical change patient was discharged home and then presented for routine visit today but was complaining of some pelvic pressure and therefore was checked and found to be 3/90 and -1 with some bloody show. Patient is not having any regular contractions on the monitor and denies any regular contractions. She had a negative GBS several weeks ago. Surgical History: Surgical History (Last Reviewed 08/18/18 @ 13:29 by Lesley Garcia) History of appendectomy Z90.49 Allergies No Known Allergies Allergy (Verified 08/18/18 13:23) Home Medications: Home Medications vitamin#30 30 mg iron-10 mg iron-folic acid 1 mg-omg3 capsule 1 cap PO DAILY cap 03/16/18 Smoking Status: Never smoker Alcohol: None Number of Fetus(es): 1 Heart Tracin moderate variability reactive no decelerations category I tracing [place]: No regular History Past Pregnancies: Past Pregnancies Delivery Date Name GA/Weeks Outcome Route Weight Gender Labor Length Anesthesia Delivery Location Provider FOB Labs: Mom's Microbiology 08/18/18 16:00 Urine, Clean Catch Urine Culture - Pending Mom's Labs & Results 08/18/18 08/18/1819 16:40 16:40 17:20 WBC 14.9 H RBC 4.03 L Hgb 12.4 Hct 36.4 L MCV 90.3 MCH 30.8 MCHC 34.1 RDW 12.7 RDW Differential 41.5 Plt Count 241 MPV 10.0 Urine Color Yellow Urine Clarity Clear Urine pH 6.0 Ur Specific [place] 1.020 Urine Protein Negative Urine Glucose (UA) Normal Urine Ketones 5 H Urine Occult Blood 250 H Urine Nitrite Negative Urine Bilirubin Negative Urine Urobilinogen Normal Ur Leukocyte Esterase 25 H Urine RBC 0-5 SEEN Urine WBC 0-5 SEEN Ur Squamous Epith Cells 0-5 SEEN Urine Bacteria 0 SEEN Urine Mucus 0 SEEN Blood Type A POSITIVE Antibody Screen NEGATIVE Social History Smoking Status Never smoker Expected Delivery Method: Spontaneous Vaginal Review of Systems Constitutional: Denies: Fever, Malaise Eyes: Denies: Blurred vision, Vision Change HEENT: Denies: Head Aches, Visual Changes Cardiovascular: Denies: Chest Pain, Palpitations Respiratory: Denies: Cough, Shortness of Breath, Wheezing Gastrointestinal: Denies: Abdominal Pain, Diarrhea, Nausea, Vomiting Genitourinary: Denies: Dysuria, Hematuria Gynecological: Reports: - - pelvic pressure. Denies: Vaginal bleeding, Vaginal discharge Musculoskeletal: Denies: Joint Pain, Muscle pain Skin: Denies: Lesions, Rash Neurological: Denies: Blurred vision, Focal weakness, Headaches Psychiatric: Denies: Anxiety, Depression Endocrine: Denies: Heat/ Cold Intolerance Hematologic/ Lymphatic: Denies: Easy Bruising, Easy Bleeding Physical Exam General: Alert, Cooperative, No apparent distress HEENT: Atraumatic, Normocephalic. Negative for: Thyromegaly, Lymphadenopathy Cardiovascular: Regular rate Lungs: Normal air movement Abdomen: Soft, Non Tender, Gravid Neurological: Deep Tendon Reflexes 2+/4 and Symmetrical, Neuro grossly intact. Negative for: Clonus [employer]IT: Normal external genitalia. Negative for: Vulvar lesions Estimated gestational size: Appropriate for gestational size Presentation: Cephalic Cervix Dilation (cm): 3 Station: -1 Effacement (%): 90 Assessment/Plan All Active Problems (Last Reviewed 08/18/18 @ 13:29 by Lesley Garcia) labor (Acute) DNA screening/uninformative SNP pattern (Acute) Abnormal screening blood test for Down syndrome in first trimester (Acute) (Acute) Supervision of normal first (Acute) Low-lying placenta (Resolved) This is a 27 year-old, G 1P0 at 32 weeks 4 days gestational age with labor 1. labor?plan 48 hours of tocolysis with Procardia to allow for opportunity for steroid administration 2. Prematurity?we will give rescue course of steroids 3. GBS -3 weeks ago, ampicillin given for latency for now. 4. Vertex 5. Obtain growth scan 6. Positive fibronectin 3 weeks ago and abnormal screening
[2018-08-18] MEDS: NIFEdipine 10 MG Capsule PO (22:29)
[2018-08-18] MEDS: 0.9% NaCl Peripheral Flush Adult/Peds IV (23:11)
[2018-08-19] MEDS: NIFEdipine 10 MG Capsule PO ×6 (02:46→23:10)
[2018-08-19] MEDS: 0.9% NaCl Peripheral Flush Adult/Peds IV (06:45)
--- NOTE | 2018-08-19 09:23 | PCM.PN.OB ---
Subjective: patient denies any lof good fm no regular ctx she has had some bloody show but decreasing overall. Objective: fht 140s moderate vairability one isolated variable reactive cat I tracing toco no contracitons - Physical Exam General: Alert, Oriented x3 Cardiovascular: Regular rate Abdomen: Soft, Non Tender, Gravid Weight: 246 lb 12.8 oz Body Mass Index (BMI) 38.6 Intake and Output for Last 24 Hours 08/17/18 08/18/18 08/19/18 23:59 23:59 23:59 Intake Total 180 / 180 Output Total 100 / 100 Balance 80 / 80 Laboratory Tests Past 24 Hrs 08/18/18 08/18/18 08/18/18 16:40 16:40 17:20 WBC 14.9 H RBC 4.03 L Hgb 12.4 Hct 36.4 L MCV 90.3 MCH 30.8 MCHC 34.1 RDW 12.7 RDW Differential 41.5 Plt Count 241 MPV 10.0 Urine Color Yellow Urine Clarity Clear Urine pH 6.0 Ur Specific [place] 1.020 Urine Protein Negative Urine Glucose (UA) Normal Urine Ketones 5 H Urine Occult Blood 250 H Urine Nitrite Negative Urine Bilirubin Negative Urine Urobilinogen Normal Ur Leukocyte Esterase 25 H Urine RBC 0-5 SEEN Urine WBC 0-5 SEEN Ur Squamous Epith Cells 0-5 SEEN Urine Bacteria 0 SEEN Urine Mucus 0 SEEN Blood Type A POSITIVE Antibody Screen NEGATIVE Medical Necessity - Tobacco Use Smoking Status: Never smoker Assessment/Plan All Active Problems (Last Reviewed 08/18/18 @ 13:29 by Lesley Garcia) labor (Acute) DNA screening/uninformative SNP pattern (Acute) Abnormal screening blood test for Down syndrome in first trimester (Acute) (Acute) Supervision of normal first (Acute) Low-lying placenta (Resolved) This is a 27 year-old, G 1P0 at 32 weeks 5 days gestational age with labor 1. labor?plan 48 hours of tocolysis with Procardia to allow for opportunity for steroid administration 2. Prematurity?we will give rescue course of steroids, s/p 1st dose 3. GBS - 4. Vertex 5. Obtain growth scan 6. Positive fibronectin 3 weeks ago and abnormal screening
[2018-08-19] MEDS: Ferrous Sulfate 325 MG Tablet PO (09:44)
--- NOTE | 2018-08-19 11:19 | US_ITS ---
STUDY: OBSTETRICAL ULTRASOUND - BIOPHYSICAL PROFILE REASON FOR EXAM: Female, 27 years old. well-being PRIOR ULTRASOUND: None. TECHNIQUE: Transabdominal ultrasound evaluation was performed. FINDINGS: There is a single intrauterine fetus. The fetus is in a cephalic presentation. There is demonstrated cardiac activity with a heart rate of 158 bpm. There is a normal amniotic fluid volume. The amniotic fluid index (HOSSEIN) is 17.5 cm. The placenta is posterior in location and is not low lying. BIOPHYSICAL PROFILE: Breathing Movements (FBM): 2 Gross Body Movements (GBM): 2 Tone (FT): 2 Amniotic Fluid Volume (AFV): 2 TOTAL SCORE: US/Biophysical Profile IMPRESSION: Normal biophysical profile of 11/09. Electronically Signed: Wesley Malhotra, at 14:55 EDT Tel , Service support ,
[2018-08-19 14:44] LABS: ROM Internal Control Test YES-OK TO RESULT pt. (Internal QC)
[2018-08-19 14:45] LABS: ROM Patient Test POSITIVE (Negative)
[2018-08-19] MEDS: Azithromycin 250 MG Tablet 1000 MG PO (16:05)
[2018-08-19] MEDS: Lactated Ringers 1,000 ML 15 ML IV (16:07)
--- NOTE | 2018-08-19 16:54 | PCM.PN.OB ---
Patient Problems: Active and Suspected Problems (Last Reviewed 08/18/18 @ 13:29 by Lesley Garcia) premature rupture of membranes (PPROM) with unknown onset of labor (Acute) Subjective: patient co clear LOF- confirmed PPROM. no vb . good fm occasional contractions. 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 Weight: 246 lb 12.8 oz Body Mass Index (BMI) 38.6 Intake and Output for Last 24 Hours 08/17/18 08/18/18 08/19/18 23:59 23:59 23:59 Intake Total 180 / 180 Output Total 100 / 100 Balance 80 / 80 Laboratory Tests Past 24 Hrs 08/18/18 08/18/18 08/18/18 16:40 16:40 17:20 WBC 14.9 H RBC 4.03 L Hgb 12.4 Hct 36.4 L MCV 90.3 MCH 30.8 MCHC 34.1 RDW 12.7 RDW Differential 41.5 Plt Count 241 MPV 10.0 Urine Color Yellow Urine Clarity Clear Urine pH 6.0 Ur Specific [place] 1.020 Urine Protein Negative Urine Glucose (UA) Normal Urine Ketones 5 H Urine Occult Blood 250 H Urine Nitrite Negative Urine Bilirubin Negative Urine Urobilinogen Normal Ur Leukocyte Esterase 25 H Urine RBC 0-5 SEEN Urine WBC 0-5 SEEN Ur Squamous Epith Cells 0-5 SEEN Urine Bacteria 0 SEEN Urine Mucus 0 SEEN Vag Amniotic Fld Detect Blood Type A POSITIVE Antibody Screen NEGATIVE 08/19/18 14:22 WBC RBC Hgb Hct MCV MCH MCHC RDW RDW Differential Plt Count MPV Urine Color Urine Clarity Urine pH Ur Specific [place] Urine Protein Urine Glucose (UA) Urine Ketones Urine Occult Blood Urine Nitrite Urine Bilirubin Urine Urobilinogen Ur Leukocyte Esterase Urine RBC Urine WBC Ur Squamous Epith Cells Urine Bacteria Urine Mucus Vag Amniotic Fld Detect POSITIVE H Blood Type Antibody Screen Medical Necessity - Tobacco Use Smoking Status: Never smoker Assessment/Plan All Active Problems (Last Reviewed 08/18/18 @ 13:29 by Lesley Garcia) premature rupture of membranes (PPROM) with unknown onset of labor (Acute) labor (Acute) DNA screening/uninformative SNP pattern (Acute) Abnormal screening blood test for Down syndrome in first trimester (Acute) (Acute) Supervision of normal first (Acute) Low-lying placenta (Resolved) This is a 27 year-old, G 1P0 at 32 weeks 5 days gestational age with labor now PPROM day 1 1. labor?plan 48 hours of tocolysis with Procardia to allow for opportunity for steroid administration 2. Prematurity?we will give rescue course of steroids, s/p 1st dose 3. GBS - 4.vertex 5. no PPROM- ampicillin and azithromycin for latency x 7 days. plan delivery at 34 weeks or if labor or chorioamnionitis
--- NOTE | 2018-08-19 16:57 | PN.OBGYN_ITS ---
Patient Problems: Active and Suspected Problems (Last Reviewed 08/18/18 @ 13:29 by Lesley Garcia) premature rupture of membranes (PPROM) with unknown onset of labor (Acute) Subjective: patient co clear LOF- confirmed PPROM. no vb . good fm occasional contractions. 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 Weight: 246 lb 12.8 oz Body Mass Index (BMI) 38.6 Intake and Output for Last 24 Hours 08/17/18 08/18/18 08/19/18 23:59 23:59 23:59 Intake Total 180 / 180 Output Total 100 / 100 Balance 80 / 80 Laboratory Tests Past 24 Hrs 08/18/18 08/18/18 08/18/18 16:40 16:40 17:20 WBC 14.9 H RBC 4.03 L Hgb 12.4 Hct 36.4 L MCV 90.3 MCH 30.8 MCHC 34.1 RDW 12.7 RDW Differential 41.5 Plt Count 241 MPV 10.0 Urine Color Yellow Urine Clarity Clear Urine pH 6.0 Ur Specific [place] 1.020 Urine Protein Negative Urine Glucose (UA) Normal Urine Ketones 5 H Urine Occult Blood 250 H Urine Nitrite Negative Urine Bilirubin Negative Urine Urobilinogen Normal Ur Leukocyte Esterase 25 H Urine RBC 0-5 SEEN Urine WBC 0-5 SEEN Ur Squamous Epith Cells 0-5 SEEN Urine Bacteria 0 SEEN Urine Mucus 0 SEEN Vag Amniotic Fld Detect Blood Type A POSITIVE Antibody Screen NEGATIVE 08/19/18 14:22 WBC RBC Hgb Hct MCV MCH MCHC RDW RDW Differential Plt Count MPV Urine Color Urine Clarity Urine pH Ur Specific [place] Urine Protein Urine Glucose (UA) Urine Ketones Urine Occult Blood Urine Nitrite Urine Bilirubin Urine Urobilinogen Ur Leukocyte Esterase Urine RBC Urine WBC Ur Squamous Epith Cells Urine Bacteria Urine Mucus Vag Amniotic Fld Detect POSITIVE H Blood Type Antibody Screen Medical Necessity - Tobacco Use Smoking Status: Never smoker Assessment/Plan All Active Problems (Last Reviewed 08/18/18 @ 13:29 by Lesley Garcia) premature rupture of membranes (PPROM) with unknown onset of labor (A cute) labor (Acute) DNA screening/uninformative SNP pattern (Acute) Abnormal screening blood test for Down syndrome in first trimester (Acute) (Acute) Supervision of normal first (Acute) Low-lying placenta (Resolved) This is a 27 year-old, G 1P0 at 32 weeks 5 days gestational age with labor now PPROM day 1 1. labor?plan 48 hours of tocolysis with Procardia to allow for opportunity for steroid administration 2. Prematurity?we will give rescue course of steroids, s/p 1st dose 3. GBS - 4.vertex 5. no PPROM- ampicillin and azithromycin for latency x 7 days. plan delivery at 34 weeks or if labor or chorioamnionitis
[2018-08-19] MEDS: Betamethasone/Betamethasone 30 MG/5 ML Vial 12 MG IM (18:36)
--- NOTE | 2018-08-19 21:05 | PCM.CONS.B ---
Problem List (1) premature rupture of membranes (PPROM) with unknown onset of labor Status: Acute (2) labor Status: Acute Qualifiers: Comment: transport summa 29 weeks/cervix funneled (3) Abnormal screening blood test for Down syndrome in first trimester Status: Acute Comment: genetic screening, mfm consult - Consult Date of Consult: 08/19/18 Chart reviewed. Joi is 27 yo mother at 32+5/7 WGA. She had presented with threatened labor at 29 weeks. Returned to office at 32 weeks with pelvic pressure and found to be dilated to 3cm. Admitted for observation. Rupture of membranes on 08/19 in afternoon. Patient had uninformative SNP pattern and had MFM consult. Family declined further testing. ultrasounds without concerns and growth WNL. Reviewed with mother and grandmother the complications of delivery including respiratory distress, temperature instability, and need for nutritional support. Reviewed inconclusive Cell free DNA test results and that further testing will be determined based on clinical signs and symptoms after delivery. Family has no questions at this time. They voiced understanding that may require transfer to higher level of care than able to be provided at [facility]. - Reason for Consult Premature labor with Premature rupture of membranes. Consult requested by Dr. Bertha Mcgovern.
[2018-08-19] MEDS: Lactated Ringers 1,000 ML 999 ML IV (21:17)
[2018-08-20] VITALS (20 sets, daily range): BP systolic 108–125; BP diastolic 58–74; PULSE 66–95; RESP 15–18; TEMP 36.3–37; O2SAT 95–100
--- NOTE | 2018-08-20 02:35 | PCM.PN.BLA ---
Progress Note heart tones 140s moderate variability, patient had 4 to 5-minute deceleration down into the 60s with recovery into the 140s with moderate variability. Patient checked in she was found to be 5/90 and -1 station. Discussed I would recommend delivery now since she is beginning labor and with decelerations. IUPC and FSE placed. Amnioinfusion started. We will start with epidural and if reassuring heart rate tracing will proceed with Pitocin augmentation of no additional cervical change. Discussed with the patient the possibility of a primary due to intolerance of labor. brief bedside ultrasound completed and multiple episodes of gross movements seen. proceed with epidural and expectant management for at this time.
[2018-08-20] MEDS: Amnioinfusion- 0.9% NS 1,000 ML IV.SOLN. INTRA-UTER (02:37)
--- NOTE | 2018-08-20 02:54 | PN_ITS ---
Progress Note heart tones 140s moderate variability, patient had 4 to 5-minute deceleration down into the 60s with recovery into the 140s with moderate va riability. Patient checked in she was found to be 5/90 and -1 station. Discussed I would recommend delivery now since she is beginning labor and with decelerations. IUPC and FSE placed. Amnioinfusion started. We will start with epidural and if reassuring heart rate tracing will proceed with Pitocin augmentation of no additional cervical change. Discussed with the patient the possibility of a primary due to intolerance of labor. brief bedside ultrasound completed and multiple episodes of gross movements seen. proceed with epidural and expectant management for at this time.
[2018-08-20] MEDS: fentaNYL-bupivacaine (epidural) 100 ML BAG EPIDURAL (03:45)
[2018-08-20] MEDS: Lactated Ringers 1,000 ML 100 ML IV (03:47)
[2018-08-20] MEDS: Sodium Citrate/Citric Acid 30 ML UDC PO (05:05)
[2018-08-20] MEDS: Cefazolin 2 GM in 0.9% Normal Saline 100 ML IV (05:05)
--- NOTE | 2018-08-20 06:24 | OP.PCM_ITS ---
Problem List (1) labor Status: Acute Qualifiers: Comment: transport summa 29 weeks/cervix funneled (2) DNA screening/uninformative SNP pattern Status: Acute Comment: recommend q 4 week growth us and weekly nst after 32 weeks (3) Abnormal screening blood test for Down syndrome in first trimester Status: Acute Comment: genetic screening, mfm consult (4) Status: Acute Qualifiers: Comment: NIPT-inconclusive. MFM anatomy done 05/15/18. Growth US on 06/15/18 overall ok, continue serial growth US and 28 week follow-up on placenta location. (5) Supervision of normal first Status: Acute Qualifiers: Comment: PRR SURI 10/09/18 girl yvon Spouse Will Delivery Classification: VÍCTOR Final SURI: 10/09/18 Gestational age: 32 Weeks and 6 Days Indications: pprom ptl Indications for : Distress Description of Procedure: Patient had PPROM and went into labor and made change to 6 cm. Patient had intermittent prolonged decelerations and amnioinfusion was started however the infant developed intermittent recurrent decelerations and therefore the decision was made for a primary secondary to category 2 tracing intolerance to labor. Epidural anesthesia was dosed accordingly and Gomez catheter was placed. The patient was placed in the dorsal supine position with leftward tilt. Patient was prepped and draped in the normal sterile fashion. Pfannenstiel skin incision was made with the scalpel and carried through to the underlying layer of fascia with the scalpel. Fascia was nicked in the midline and the incision extended laterally. The rectus bellies were dissected off superiorly and inferiorly with out complication both sharply and bluntly. The peritoneum was entered digitally. The incision was stretched and a low transverse uterine incision was made with the scalpel. The infant's head was delivered atraumatically followed by the anterior and posterior shoulders without complication the rest of the infant delivered. The cord was clamped and cut and the was handed off to awaiting nurse. The placenta was delivered spontaneously immediately following and was noted to be intact and have a three- vessel cord. The uterus was cleared of all clots and debris, and the incision was closed in a double layer closure using #1 Monocryl. The ovaries and fallopian tubes were noted to be within normal limits. Rigoberto was applied to the incision to obtain excellent hemostasis. The peritoneum was closed with 3-0 Monocryl in a running fashion. Fascia was closed with 0 PDS in a running fashion and then three [address] way through lap counts were incorrect and therefore the peritoneal incision was opened back up and additional lab removed. Sponge lap and needle counts are correct x2. Excellent hemostasis was noted after Rigoberto was applied over the peritoneal area. Remainder of the fascia was closed with 0 PDS in a running fashion. Subcutaneous tissue was copiously irrigated and the skin was closed with 3-0 Monocryl in a subcuticular fashion. Mepilex dressing were applied without complication. Patient was taken to recovery in stable condition. Amniotic Membrane Rupture Type: Spontaneous Amniotic Fluid Description: Clear Placenta Disposition: [facility] Drain: Gomez to straight drain Cord Entanglement: None Cord Vessel Description: 3 Vessels Esitmated Blood Loss (ml): 600 Infant Gender: Female Delayed cord clamping: Yes Pre-op Antibiotic Given: Ancef 2 grams IV x1 - Admit VTE Documentation VTE Present on Admission: Yes VTE Mechan Device Prophylaxis: SCD's
[2018-08-20] MEDS: Lactated Ringers 1,000 ML 150 ML IV ×2 (06:45→08:39)
--- NOTE | 2018-08-20 07:53 | NURSING ---
small clot expressed with fundal check, fundus firm
[2018-08-20] MEDS: Nalbuphine 10 MG/ML Ampul 5 MG IV ×2 (10:44→17:37)
--- NOTE | 2018-08-20 15:30 | NURSING ---
1450 pt oob up to chair pt tolerated well; gait steady; pt pumping every 3 hours
--- NOTE | 2018-08-20 16:37 | NURSING ---
1600 pt doing well; pt took shower then back to chair;
[2018-08-20] MEDS: Acetaminophen 325 MG Tablet 650 MG PO (21:18)
[2018-08-20] MEDS: Ketorolac 30 MG/ML Syringe IV (23:53)
[2018-08-20] MEDS: 0.9% Saline Lock 10 ML Syringe IV (23:53)
[2018-08-21] VITALS: BP 108/59; PULSE 63; RESP 16; TEMP 36.8; O2SAT 99
[2018-08-21 02:00] VITALS: PULSE 77; RESP 16; O2SAT 97
[2018-08-21 04:00] VITALS: PULSE 72; RESP 16; O2SAT 99
[2018-08-21 05:00] VITALS: BP 120/70; PULSE 63; RESP 16; TEMP 36.8; O2SAT 99
[2018-08-21] MEDS: Ketorolac 30 MG/ML Syringe IV (05:05)
[2018-08-21] MEDS: 0.9% Saline Lock 10 ML Syringe IV (05:05)
[2018-08-21 05:32] LABS: Hematocrit 34.2 % (37-47); Hemoglobin 11.4 g/dl (12.0-15.0); Mean Corp Hgb Conc 33.3 g/gl (32-36); Mean Corpuscular Hgb 30.9 pg (27.0-32.0); Mean Corpuscular Volume 92.7 fL (81-99); Mean Platelet Vol. 9.4 fl (6.2-12.0); Platelet Count 197 K/mm3 (150-450); RBC Distribution Width CV 13.1 % (11.6-14.6); RBC Distribution Width SD 44.2 fl (35.1-43.9); Red Blood Count 3.69 M/mm3 (4.2-5.4); Scan Indicated on CBC? Y/N NO; White Blood Count 15.2 K/mm3 (4.4-11.0)
[2018-08-21 07:50] VITALS: BP 131/85; PULSE 75; RESP 15; TEMP 36.8
--- NOTE | 2018-08-21 09:06 | NURSING ---
0745- Dr Mcgovern in to speak with patient. OK for discharge today when patient is ready to go home.
--- NOTE | 2018-08-21 10:02 | PCM.PN.OB ---
Patient Problems: Active and Suspected Problems (Last Reviewed 08/18/18 @ 13:29 by Lesley Garcia) premature rupture of membranes (PPROM) with unknown onset of labor (Acute) Subjective: doing well no complaints pain controlled no CP SOB N V ambulating well tolerating po lochia moderate, going well - Physical Exam General: Alert, Oriented x3 Vital Signs Temp Pulse Resp BP Pulse Ox 98.3 F 75 15 131/85 H 99 08/21/18 07:50 08/21/18 07:50 08/21/18 07:50 08/21/18 07:50 08/21/18 05:00 Oxygen Delivery Method Room Air Weight: 246 lb 12.8 oz Body Mass Index (BMI) 38.6 Intake and Output for Last 24 Hours 08/19/18 08/20/18 08/21/18 23:59 23:59 23:59 Intake Total 7386 / 7386 Output Total 1000 / 1000 3000 / 3000 1800 / 1800 Balance -1000 / -1000 4386 / 4386 -1800 / -1800 Microbiology Past 72 Hours 08/18/18 16:00 Urine Culture - Final Urine, Clean Catch Mixed Gram Positive Organisms Laboratory Tests Past 24 Hrs 08/21/18 05:10 WBC 15.2 H RBC 3.69 L Hgb 11.4 L Hct 34.2 L MCV 92.7 MCH 30.9 MCHC 33.3 RDW 13.1 RDW Differential 44.2 H Plt Count 197 MPV 9.4 Medical Necessity - Tobacco Use Smoking Status: Never smoker Assessment/Plan All Active Problems (Last Reviewed 08/18/18 @ 13:29 by Lesley Garcia) premature rupture of membranes (PPROM) with unknown onset of labor (Acute) labor (Acute) DNA screening/uninformative SNP pattern (Acute) Abnormal screening blood test for Down syndrome in first trimester (Acute) (Acute) Supervision of normal first (Acute) Low-lying placenta (Resolved) s/p LTCS PPD # 1 1. routine post care 2. breast feeding- support given 3. rh positive 4. rubella immune
--- NOTE | 2018-08-21 10:04 | DCINST_ITS ---
Discharge Diet: No Restrictions Discharge Activity: May Not Drive - for 2 weeks, May not drive while taking narcotic pain medications., May Shower, May Take a Tub Bath - in 7 days May resume sexual activity in: 4-6 weeks Lifting Restrictions: 20 pounds Additional Activity Instructions:: Nothing in the vagina for 4-6 weeks. You may return to work/school in 6 weeks. Call your doctor if your incision/area has: Continuous Slow Oozing, Sudden Increased Bleeding, Increased Pain/ Swelling, Increased Redness, Foul Smelling Discharge Call your doctor if you observe: Fever of 101 or Higher, Using more than one pad per hour - for 2 hours Suture Line Care: Avoid Pulling/Pushing, Avoid Pinching/Bending Cleanse incision/area with: Keep Dressing Clean & Dry Additional Instructions: If you experience any of the following, contact your healthcare provider. * Bleeding that soaks a pad every hour for 2 hours * Fever 100.4 or higher * Unrelieved incision or abdominal pain * Swelling, redness, discharge or bleeding from your incision or episiotomy site * Your incision begins to separate * Problems urinating (including inability to urinate or burning while urinating). * Visual changes * Severe headache * Flu-like symptoms * Pain or redness in one of both of your breasts * Pain, warmth, tenderness or swelling in your legs, especially the calf area * Frequent nausea and vomiting * Symptoms of depression or anxiety If you experience any of the following, call 911 or go to the nearest Emergency Room. * Chest pain * Problems breathing * Seizure activity * Partial or complete paralysis of a body part, slurred speech, weakness or drooping of the face, or a sudden inability to walk or hold your balance Allergies/Adverse Reactions: Allergies No Known Allergies Allergy (Verified 08/18/18 13:23) Medications to take at Discharge vitamin#30 30 mg iron-10 mg iron-folic acid 1 mg-omg3 capsule 1 cap PO DAILY cap 03/16/18 Follow-Up: Call to make an appointment with your doctor for an incision check in 1-2 weeks. You will also need a 6 week post- follow up appointment. Test results from this visit will be discussed in further detail at your follow- up appointment, if applicable. Please Follow Up With: Bertha Mcgovern MD - Call to make an appointment for an incision check in 1-2 [phone] When: You will need a post- check in 6 weeks. Primary Care Physician: Mahad Gutierrez III, MD [Primary Care Provider] -
--- NOTE | 2018-08-21 10:13 | DS.PCM_ITS ---
Discharge Date and Diagnosis Date of Admission: 08/18/18 Date of Discharge: 08/21/18 - Primary Discharge Diagnosis Active and Suspected Problems (Last Reviewed 08/18/18 @ 13:29 by Lesley Garcia) premature rupture of membranes (PPROM) with unknown onset of labor (Acute) Hospital Course and Treatment Operations: - - primary Summary of Care Provided: The patient is a 27 year old F @ 32w6d presented with PTL, was started on procardia and given a rescue course of steroids. previous course had been given at 29 weeks with another PTL episode. patient was initially 3 cm upon p resentation. she then had PPROM and went into labor, and at 6 cm developed intermittent decelerations and was delivered via with a cord ph ABG of 7.22. patient underwent a section and had a routine recovery with a return of bowel and bladder function, was ambulating, voiding, and tolerating po, and was stable for discharge to home on POD 1. - Physical Exam Vital Signs Temp Pulse Resp BP Pulse Ox 98.3 F 75 15 131/85 H 99 08/21/18 07:50 08/21/18 07:50 08/21/18 07:50 08/21/18 07:50 08/21/18 05:00 Oxygen Delivery Method Room Air Weight: 246 lb 12.8 oz Body Mass Index (BMI) 38.6 Intake and Output for Last 24 Hours 08/19/18 08/20/18 08/21/18 23:59 23:59 23:59 Intake Total 7386 / 7386 Output Total 1000 / 1000 3000 / 3000 1800 / 1800 Balance -1000 / -1000 4386 / 4386 -1800 / -1800 Microbiology Past 72 Hours 08/18/18 16:00 Urine Culture - Final Urine, Clean Catch Mixed Gram Positive Organisms Laboratory Tests Past 24 Hrs 08/21/18 05:10 WBC 15.2 H RBC 3.69 L Hgb 11.4 L Hct 34.2 L MCV 92.7 MCH 30.9 MCHC 33.3 RDW 13.1 RDW Differential 44.2 H Plt Count 197 MPV 9.4 Discharge Diet: No Restrictions Discharge Activity: May Not Drive - for 2 weeks, May not drive while taking narcotic pain medications., May Shower, May Take a Tub Bath - in 7 days May resume sexual activity in: 4-6 weeks Additional Activity Instructions:: Nothing in the vagina for 4-6 weeks. You may return to work/school in 6 weeks. Call your doctor if your incision/area has: Continuous Slow Oozing, Sudden Increased Bleeding, Increased Pain/ Swelling, Increased Redness, Foul Smelling Discharge Call your doctor if you observe: Fever of 101 or Higher, Using more than one pad per hour - for 2 hours Suture Line Care: Avoid Pulling/Pushing, Avoid Pinching/Bending Cleanse incision/area with: Keep Dressing Clean & Dry Home Medications: Medications to take at Discharge vitamin#30 30 mg iron-10 mg iron-folic acid 1 mg-omg3 capsule 1 cap PO DAILY cap 03/16/18 RX: Naproxen [Naprosyn] 250 - 500 mg PO Q8H PRN PRN #30 tablet 08/21/18 RX: Oxycodone HCl/Acetaminophen [Percocet 5-325] 1 - 2 tablet PO Q4H PRN PRN 7 Days #28 tablet 08/21/18 Following Prescrptions Were Given to Patient: RX: Oxycodone HCl/Acetaminophen [Percocet 5-325] 1 - 2 tablet PO Q4H PRN PRN 7 Days #28 tablet PRN Reason: Moderate-Severe pain RX: Naproxen [Naprosyn] 250 - 500 mg PO Q8H PRN PRN #30 tablet PRN Reason: MILD PAIN Primary Care Physician: Mahad Gutierrez III, MD [Primary Care Provider] - Please Follow Up With: Bertha Mcgovern MD - Call to make an appointment for an incision check in 1-2 [phone] When: You will need a post- check in 6 weeks. Medical Necessity - Tobacco Use Smoking Status: Never smoker Meaningful Use Info Meaningful Use Diagnoses (Choose all that apply): None applicable
[2018-08-21] MEDS: Acetaminophen 325 MG Tablet 650 MG PO (11:25)
--- NOTE | 2018-08-26 14:07 | NURSING ---
Baby transferred to main campus. No answer on follow up phone call. Left voicemail
== END 2018-08-21 11:30 | disposition home or self-care (01) | DRG 788 ==
PROVIDERS: Admitting Provider Obstetrics & Gynecology; Family Provider Family Medicine; PCP Family Medicine; Referring Provider Obstetrics & Gynecology; Visit Provider Obstetrics & Gynecology
DX: O76 Abnormality in fetal heart rate and rhythm complicating labor and delivery (principal); O42.913 Preterm premature rupture of membranes, unspecified as to length of time between rupture and onset of labor, third trimester; Z3A.32 32 weeks gestation of pregnancy; Z37.0 Single live birth
CPT/HCPCS: 36415; 59025; 59050; 76816; 76818; 81001; 84112; 85027; 86850; 86900; 87086; 87088; 96372; 99218; J7030; J7120; A4216; G0378; J0290; J0702

== ENCOUNTER → 2020-11-20 16:40 | Outpatient (CLI) | payer OTHER, SELFPAY ==
[2020-11-25 16:57] LABS: HPV APTIMA, High Risk Negative (Negative)
== END ==
PROVIDERS: Visit Provider Obstetrics & Gynecology
DX: Z12.4 Encounter for screening for malignant neoplasm of cervix (principal)
CPT/HCPCS: 87624; 88175; G0145

== ENCOUNTER → 2020-12-01 11:23 | Outpatient (CLI) | payer OTHER, SELFPAY ==
[2020-12-01 12:11] LABS: Absolute Lymphocyte Count 2.26 X10^3/uL (0.83-4.51); Absolute Neutrophil Count 2.7 X10^3/uL (2.0-7.7); Basophil# 0.03 X10^3/uL; Basophil% 0.5 % (0-1); Eosinophil# 0.05 X10^3/uL; Eosinophils% 0.9 % (0-5); Hematocrit 40.2 % (37-47); Hemoglobin 13.5 g/dL (12.0-15.0); Lymphocyte # 2.26 X10^3/ul (0.83-4.51); Lymphocyte % 40.8 % (19-41); Mean Corp Hgb Conc 33.6 g/dL (32-36); Mean Corpuscular Hgb 30.3 pg (27.0-32.0); Mean Corpuscular Volume 90.1 fL (81-99); Mean Platelet Vol. 10.1 fl (6.2-12.0); Monocyte# 0.44 X10^3/uL; Monocyte% 7.9 % (0-10); NRBC Flagged by Analyzer 0 % (0-5); Neutrophil # 2.74 X10^3/uL (2.7-7.7); Neutrophil % 49.5 % (47-70); Platelet Count 229 K/mm3 (150-450); RBC Distribution Width CV 12.4 % (11.6-14.6); RBC Distribution Width SD 41.2 fl (35.1-43.9); Red Blood Count 4.46 M/mm3 (4.2-5.4); White Blood Count 5.5 K/mm3 (4.4-11.0)
[2020-12-01 12:46] LABS: ALB/GLOB Ratio 1.1 RATIO (0.9-2.4); AST(SGOT) 17 U/L (15-37); Alanine Aminotransfer ALT/SGPT 22 U/L (13-56); Alkaline Phosphatase 71 U/L (45-117); Anion Gap 5 (5-15); BUN 13 mg/dL (7-18); BUN/Creat Ratio 15.9 RATIO (10-20); Calcium,Total 8.7 mg/dL (8.5-10.1); Chloride 105 mmol/L (98-107); Cholesterol 170 mg/dL (200); Creatinine, Serum 0.82 mg/dL (0.55-1.02); EST Glomerular Filtration Rate 87 mL/min (>60); Est Glom Filt Rate - Afr Amer 105 mL/min (>60); Globulin 3.5 g/dL (2.2-4.2); Glucose 91 mg/dL (74-106); High Density Lipoprotein 52 mg/dL; Potassium 3.8 mmol/L (3.5-5.1); Protein, Total 7.5 g/dL (6.4-8.2); Sodium Level 138 mmol/L (136-145); Thyroid Stim Hormone (TSH) 2.63 uIU/mL (0.358-3.74); Triglycerides 49 mg/dL; Very Low Density Lipoprotein 10 mg/dL (5-40)
== END ==
PROVIDERS: Visit Provider Family Medicine
DX: R53.83 Other fatigue (principal); E66.9 Obesity, unspecified; R42 Dizziness and giddiness
CPT/HCPCS: 36415; 80053; 80061; 84443; 85025

== ENCOUNTER → 2021-03-24 15:25 | Outpatient (CLI) | payer OTHER, SELFPAY ==
[2021-03-24 15:54] LABS: Absolute Neutrophil Count 7.6 X10^3/uL (2.0-7.7); Basophil# 0.02 X10^3/uL; Basophil% 0.2 % (0-1); Eosinophil# 0.06 X10^3/uL; Eosinophils% 0.5 % (0-5); Hematocrit 36.5 % (37-47); Hemoglobin 12.8 g/dL (12.0-15.0); Lymphocyte % 22.7 % (19-41); Mean Corp Hgb Conc 35.1 g/dL (32-36); Mean Corpuscular Hgb 31.1 pg (27.0-32.0); Mean Corpuscular Volume 88.8 fL (81-99); Mean Platelet Vol. 9.8 fl (6.2-12.0); Monocyte# 0.81 X10^3/uL; Monocyte% 7.4 % (0-10); NRBC Flagged by Analyzer 0 % (0-5); Neutrophil # 7.56 X10^3/uL (2.7-7.7); Neutrophil % 68.8 % (47-70); Platelet Count 212 K/mm3 (150-450); RBC Distribution Width CV 12.8 % (11.6-14.6); RBC Distribution Width SD 41.9 fl (35.1-43.9); Red Blood Count 4.11 M/mm3 (4.2-5.4)
[2021-03-24 16:02] LABS: Glucose Challenge Gest 1H 50g 150 mg/dL (70-140)
[2021-03-24 17:12] LABS: Amphetamine Urine VISTA NEGATIVE (<1000 ng/mL); Barbiturate Urine VISTA NEGATIVE (< 200 ng/mL); Benzodiazepine Urine VISTA NEGATIVE (< 200 ng/mL); Cocaine Urine VISTA NEGATIVE (< 300 ng/mL); Ecstacy Urine VISTA NEGATIVE (< 500 ng/mL); Methadone Urine VISTA NEGATIVE (< 300 ng/mL); PCP Urine VISTA NEGATIVE (< 25 ng/mL); THC Urine VISTA NEGATIVE (< 50 ng/mL); Vista UDS pH Range 6
[2021-03-25 09:19] LABS: HIV - WCH Non-Reactive (Nonreactive); Hepatitis B Surface Antigen Non-Reactive (Nonreactive); Hepatitis C Antibody Non-Reactive (Nonreactive); Rubella IgG Reactive (Nonreactive); Syphilis Antibodies Non-reactive
== END ==
PROVIDERS: Referring Provider Obstetrics & Gynecology; Visit Provider Obstetrics & Gynecology
DX: O09.90 Supervision of high risk pregnancy, unspecified, unspecified trimester (principal); O99.210 Obesity complicating pregnancy, unspecified trimester; Z3A.00 Weeks of gestation of pregnancy not specified
CPT/HCPCS: 36415; 80307; 82950; 85025; 86703; 86762; 86780; 86803; 86850; 86900; 86901; 87086; 87088; 87186; 87340

== ENCOUNTER 2021-04-08 13:16 | Outpatient (CLI) | payer OTHER, SELFPAY | END 2021-04-08 23:59 | disposition short-term general hospital (02) | LOC: LABSPEC 13:16 | PROVIDERS: Visit Provider Physician Assistant | DX: Z11.52 Encounter for screening for COVID-19 (principal) | CPT/HCPCS: 87635; U0003; U0005 ==

== ENCOUNTER 2021-04-13 06:56 | Outpatient (CLI) | payer OTHER, SELFPAY ==
[2021-04-13 07:41] LABS: Glucose GTT-Gestation. Fasting 85 mg/dL (<105)
[2021-04-13 09:10] LABS: Glucose GTT-Gestational 1 Hr 126 mg/dL (<190)
[2021-04-13 10:02] LABS: Glucose GTT-Gestational 2 Hr 108 mg/dL (<165)
[2021-04-13 11:19] LABS: Glucose GTT-Gestational 3 Hr 60 L (<145)
== END 2021-04-13 23:59 | disposition short-term general hospital (02) ==
LOC: LAB 06:59
PROVIDERS: Referring Provider Obstetrics & Gynecology; Visit Provider Obstetrics & Gynecology
DX: Z13.1 Encounter for screening for diabetes mellitus (principal)
CPT/HCPCS: 36415; 82951; 82952

== ENCOUNTER → 2021-04-20 | Outpatient (CLI) | payer OTHER, SELFPAY | END | disposition home or self-care (01) | LOC: LABSPEC 06-30 14:24 | PROVIDERS: Visit Provider Family Medicine | DX: U07.1 COVID-19 (principal) | CPT/HCPCS: 87635; U0003; U0005 ==

== ENCOUNTER 2021-07-13 10:51 | Outpatient (CLI) | payer OTHER, SELFPAY ==
[2021-07-13 11:20] LABS: Absolute Lymphocyte Count 1.65 X10^3/uL (0.83-4.51); Absolute Neutrophil Count 10.6 X10^3/uL (2.0-7.7); Basophil# 0.04 X10^3/uL; Basophil% 0.3 % (0-1); Eosinophil# 0.09 X10^3/uL; Eosinophils% 0.7 % (0-5); Hematocrit 36.7 % (37-47); Hemoglobin 12.3 g/dL (12.0-15.0); Lymphocyte # 1.65 X10^3/ul (0.83-4.51); Lymphocyte % 12.4 % (19-41); Mean Corp Hgb Conc 33.5 g/dL (32-36); Mean Corpuscular Hgb 31.1 pg (27.0-32.0); Mean Corpuscular Volume 92.7 fL (81-99); Mean Platelet Vol. 9.7 fl (6.2-12.0); Monocyte# 0.82 X10^3/uL; Monocyte% 6.2 % (0-10); NRBC Flagged by Analyzer 0 % (0-5); Neutrophil # 10.58 X10^3/uL (2.7-7.7); Neutrophil % 79.6 % (47-70); Platelet Count 250 K/mm3 (150-450); RBC Distribution Width CV 13.2 % (11.6-14.6); Red Blood Count 3.96 M/mm3 (4.2-5.4); White Blood Count 13.3 K/mm3 (4.4-11.0)
[2021-07-13 11:41] LABS: Glucose Challenge Gest 1H 50g 94 mg/dL (70-140)
== END 2021-07-13 23:59 | disposition home or self-care (01) ==
LOC: PAVLAB 10:52 → LAB 10:55
PROVIDERS: Nurse Practitioner Women's Health; Referring Provider Obstetrics & Gynecology; Visit Provider Obstetrics & Gynecology
DX: Z34.92 Encounter for supervision of normal pregnancy, unspecified, second trimester (principal)
CPT/HCPCS: 36415; 82950; 85025

== ENCOUNTER 2021-08-07 10:45 | Outpatient (CLI) | payer OTHER, SELFPAY ==
[2021-08-07 11:04] VITALS: BP 127/78; PULSE 103; TEMP 36.3
[2021-08-07 11:05] VITALS: BMI 38.1
[2021-08-07] MEDS: Betamethasone/Betamethasone 30 MG/5 ML Vial 12 MG IM (11:28)
== END 2021-08-07 11:30 | disposition home or self-care (01) ==
LOC: WPOUT 10:52 → WP 10:52
PROVIDERS: Referring Provider Obstetrics & Gynecology; Visit Provider Obstetrics & Gynecology
DX: O09.219 Supervision of pregnancy with history of pre-term labor, unspecified trimester (principal); Z3A.00 Weeks of gestation of pregnancy not specified
CPT/HCPCS: 96372; 99218; G0378; J0702

== ENCOUNTER → 2021-09-14 | Outpatient (CLI) | payer OTHER, SELFPAY | END | disposition home or self-care (01) | LOC: LABSPEC 09-16 13:23 | PROVIDERS: Visit Provider Nurse Practitioner Women's Health | DX: Z34.93 Encounter for supervision of normal pregnancy, unspecified, third trimester (principal) | CPT/HCPCS: 87081 ==

== ENCOUNTER 2021-09-28 10:40 | Inpatient (IN) | payer OTHER, SELFPAY ==
[2021-09-28] VITALS (18 sets, daily range): BP systolic 98–132; BP diastolic 43–93; PULSE 62–100; RESP 12–18; TEMP 36.2–36.9; O2SAT 98–100; BMI 40.7
[2021-09-28] MEDS: Lactated Ringers 1,000 ML 999 ML IV (11:15)
[2021-09-28] MEDS: Acetaminophen 500 MG Tablet 1000 MG PO ×3 (12:08→23:38)
[2021-09-28] MEDS: Metoclopramide 10 MG/2 ML Vial IV (12:08)
[2021-09-28 12:18] LABS: Absolute Lymphocyte Count 1.94 X10^3/uL (0.83-4.51); Absolute Neutrophil Count 8.8 X10^3/uL (2.0-7.7); Basophil# 0.03 X10^3/uL; Basophil% 0.3 % (0-1); Eosinophil# 0.08 X10^3/uL; Eosinophils% 0.7 % (0-5); Hematocrit 36.8 % (37-47); Hemoglobin 12.4 g/dL (12.0-15.0); Lymphocyte # 1.94 X10^3/ul (0.83-4.51); Lymphocyte % 16.4 % (19-41); Mean Corp Hgb Conc 33.7 g/dL (32-36); Mean Corpuscular Hgb 31.1 pg (27.0-32.0); Mean Corpuscular Volume 92.2 fL (81-99); Mean Platelet Vol. 10.4 fl (6.2-12.0); Monocyte% 7.6 % (0-10); NRBC Flagged by Analyzer 0 % (0-5); Neutrophil # 8.77 X10^3/uL (2.7-7.7); Neutrophil % 74.1 % (47-70); Platelet Count 242 K/mm3 (150-450); RBC Distribution Width CV 12.7 % (11.6-14.6); RBC Distribution Width SD 42.9 fl (35.1-43.9); Red Blood Count 3.99 M/mm3 (4.2-5.4); White Blood Count 11.8 K/mm3 (4.4-11.0)
[2021-09-28] MEDS: Lactated Ringers 1,000 ML 150 ML IV (12:37)
[2021-09-28] MEDS: Sodium Citrate/Citric Acid 30 ML UDC PO (13:48)
--- NOTE | 2021-09-28 14:03 | HP.PCM.OB_ITS ---
HPI - General General Date of Admission: 09/28/21 HPI Narrative ELISE RAY, is a 31 F who presents with contractions and bleeding, increased discharge since last night, made cervical change to 3-4, 70, -1. she feels good fm. she has a history of PTB. Maternal Data Information SURI Calculator Estimated Delivery Date Method Current WG Current Estimate 10/13/21 Ultrasound #1 37w 6d Other Estimates 10/20/21 LMP (Certain) 36w 6d PFSH PFSH Medical History (Updated 09/28/21 @ 14:[address] Bertha Mcgovern MD) Abnormal glucose affecting History of premature delivery Lab test positive for detection of COVID-19 virus Low-lying placenta in second trimester Home Medications vitamin#30 30 mg iron-10 mg iron-folic acid 1 mg-omg3 capsule 1 cap PO DAILY 11/20/20 [History Last Taken 08/07/21 08:30] aspirin 81 mg chewable tablet 81 mg PO DAILY covid in 07/13/21 [History Last Taken 08/07/21 08:30] Allergy/AdvReac Type Severity Reaction Status Date / Time No Known Allergies Allergy Verified 09/28/21 11:45 Family History Grandfather Cancer bone Father Anemia Surgical History (Updated 09/28/21 @ 14:[address] 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 Date Name GA/Weeks Outcome Route Bth Weight Gen Labor Lgth Anesthesia Del Locatn Provider FOB 08/20/18 Vitor 32 live - 5lbs 4oz Female spinal [facility] Delivery Date: 08/20/18 Last Updated by: Dinorah Torrez PTL; primary secondary to category 2 tracing intolerance to labor. Visit Details Expected Delivery Route/Plan RLTCS Plans IUD pp Plans Covid status: immune, vaccinated Flu vaccine: given Tdap vaccine: given Rhogam: NA LARC form signed: yes Problem list reviewed and updated with the most current plan of care details and appropriate orders placed. Relevant counseling for the gestational age provided. Continue routine care and follow up unless otherwise noted in visit notes/problem list details OB Flowsheet Initial Weight: Not Recorded Date -?-?-?-?-?-?-?-?-?-?-?-?- EGA Weight BP Urine Prot -?-?-?-?-?-?-?-?-?-?-?-?- Glucose FHR FuHt Pres Dilation -?-?-?-?-?-?-?-?-?-?-?-?- Effaced St Visit Note 03/24/21 -?-?-?-?-?-?-?-?-?-?-?-?- 11w 0d 208 lb 6 oz 144/70 -?-?-?-?-?-?-?-?-?-?-?-?- 168 -?-?-?-?-?-?-?-?-?-?-?-?- JV- CRL off by 1 week from LMP. plan for lakesha injections at 16 weeks, bi weekly CL at 16 weeks with MFM. pt declines genetic testing. 05/22/21 -?-?-?-?-?-?-?-?-?-?-?-?- 19w 3d 210 lb 8 oz 138/80 Nega tive -?-?-?-?-?-?-?-?-?-?-?-?- Negative 145 -?-?-?-?-?-?-?-?-?-?-?-?- SM- no vb ulises ng doing well has been seeing MFM. 06/16/21 -?-?-?-?-?-?-?-?-?-?-?-?- 23w 0d 218 lb 6 oz 138/70 Nega tive -?-?-?-?-?-?-?-?-?-?-?-?- Negative 140 -?-?-?-?-?-?-?-?-?-?-?-?- JV- no lof, vagi nal bleeding, or cramping. plan for q 2 week cervix checks. most recent was 34mm. pt would like for us to do steroid injections at viability and repeat after 30 weeks. She states that she is very anxious and this will help with anxiety. pt must do her GCT first. 07/13/21 -?-?-?-?-?-?-?-?-?-?-?-?- 26w 6d 226 lb 122/80 Negative -?-?-?-?-?-?-?-?-?-?-?-?- Negative 148 27 -?-?-?-?-?-?-?-?-?-?-?-?- MH-no VB, LOF. G ood Fm. 29 wk labs, larc. 1st steroid injection today. RTO tomorrow for 2nd injection. 08/07/21 -?-?-?-?-?-?-?-?-?-?-?-?- 30w 3d 236 lb 136/76 Negative -?-?-?-?-?-?-?-?-?-?-?-?- Negative 145 30 0 -?-?-?-?-?-?-?-?-?-?-?-?- 20 -1 MH-No VB, LOF. Good FM. Tearful. Feeling more pressure no reg CTX. Del last baby at 32 weeks. Still use progest. supp daily. Had steroids 4 weeks ago. Cervix very soft. To WP for 1 dose only steroid/JV. Zoloft ordered 08/21/21 -?-?-?-?-?-?-?-?-?-?-?-?- 32w 3d 136/80 Negative -?--?-?-?-?-?-?-?-?-?-?-?- Negative 140 32 1 -?-?-?-?-?-?-?-?-?-?-?-?- 40 -2 SM- co edi e pelvic pressure no regular ctx no vb lof some FM. reviewed labor precautions. already had steroids. discussed no tocolysis at this time unless regular ctx and cervical change, cs scheduled 09/04/21 -?-?-?-?-?-?-?-?-?-?-?-?- 34w 3d 242 lb 8 oz 136/82 Nega tive -?-?-?-?-?-?-?-?-?-?-?-?- Negative 155 35 1 -?-?-?-?-?-?-?-?-?-?-?-?- 50 -2 SM- no vb lof some pressure still. cervix minimal change 1-2 cm 50 09/14/21 -?-?-?-?-?-?-?-?-?-?-?-?- 35w 6d 245 lb 8 oz 116/70 Nega tive -?-?-?-?-?-?-?-?-?-?-?-?- Negative 142 36 Cephalic 2 -?-?-?-?-?-?-?--?-?-?-?-?- 50 -2 MH-Irreg C TX, more pressure. No VB, LOF. Good Fm. GBS done. Reviewed S&S labor to report 09/21/21 -?-?-?-?-?-?-?-?-?-?-?-?- 36w 6d 248 lb 138/88 Negative -?-?-?-?-?-?-?-?-?-?-?-?- Negative 140 37 Cephalic 2 .5 -?-?-?-?-?-?-?-?-?-?-?-?- 60 -2 SM- no vb lof good fm no reuglar ctx 09/28/21 -?-?-?-?-?-?-?-?-?-?-?-?- 37w 6d 253 lb 138/82 Negative -?-?-?-?-?-?-?-?-?-?-?-?- Negative 140 39 Cephalic 3 .5 -?-?-?-?-?-?-?-?-?-?-?-?- 70 -1 SM- co ble eding and increased discharge good fm co regular ctx checked cervix and has made change- will recommend proceeding with cs 09/28/21 -?-?-?-?-?-?-?-?-?-?-?-?- 37w 6d 252 lb 6 oz 132/81 132/81 -?-?-?-?-?-?-?-?-?-?-?-?- -?-?-?-?-?-?-?-?-?-?-?-?- NST FHR Rate Baby A Baseline: 140 Variability:: Moderate Accelerations:: 15 x 15 Decelerations:: None NST Reactive:: Yes FHR Category:: Category I ROS Constitutional Constitutional: Reports systems reviewed and no addt'l complaints, except as documented ENT HEENT: Reports systems reviewed and no addt'l complaints, except as documented Cardiovascular Cardiovascular: Reports systems reviewed and no addt'l complaints, except as documented Respiratory/Chest Respiratory/Chest: Reports systems reviewed and no addt'l complaints, except as documented Gastrointestinal Gastrointestinal: Reports systems reviewed and no addt'l complaints, except as documented and nausea; Denies abdominal pain Genitourinary Genitourinary: Reports systems reviewed and no addt'l complaints, except as documented, contractions Details: present and frequency (regular ) and movement Details: present Musculoskeletal Musculoskeletal: Reports systems reviewed and no addt'l complaints, except as documented Integumentary Integumentary: Reports as per HPI Neurologic Neurologic: Reports systems reviewed and no addt'l complaints, except as documented Endocrine Endocrinology: Reports systems reviewed and no addt'l complaints, except as documented Vital Signs Vital Signs Vital Signs: 09/28/21 10:55 09/28/21 10:55 09/28/21 10:55 Temperature Temperature Source Pulse Rate 100 Respiratory Rate Blood Pressure 132/81 H Blood Pressure Mean BP Systolic 132 BP Diastolic 81 Blood Pressure Source Blood Pressure Position Blood Pressure Location Pulse Ox 98 Oxygen Delivery Method 09/28/21 10:56 09/28/21 10:56 09/28/21 10:56 Temperature Temperature Source Temporal Pulse Rate 95 Respiratory Rate Blood Pressure Blood Pressure Mean BP Systolic BP Diastolic Blood Pressure Source Blood Pressure Position Blood Pressure Location Pulse Ox 98 Oxygen Delivery Method 09/28/21 10:56 09/28/21 12:13 Temperature 98.4 F 98.4 F Temperature Source Temporal Pulse Rate 95 Respiratory Rate 14 Blood Pressure 132/81 H Blood Pressure Mean 98 BP Systolic BP Diastolic Blood Pressure Source Monitor Blood Pressure Position Semi-Fowlers Blood Pressure Location Right Arm Pulse Ox 98 Oxygen Delivery Method Room Air Weight Weight: 252 lb 6 oz Body Mass Index (BMI) 40.7 Physical Exam Const alert, oriented x3 and healthy appearing Constitutional Narrative: uncomfortable with contractions HEENT normocephalic and moist oral mucous membranes Head and Scalp: atraumatic Neck full ROM, no lymphadenopathy, supple and thyroid normal General: trachea midline Thyroid: thyroid normal Lymph Lymphatic: no lymphadenopathy noted Chest inspection of chest normal Resp normal respiratory effort Cardio regular rate GI normal to inspection, nondistended, normoactive bowel sounds, soft to palpation and non-tender Inspection: gravid external exam normal Bimanual Exam - Vag & Uterus: uterus non-tender Manual OB Exam: estimated gestational size appropriate, presentation cephalic, dilated, effaced and station Extremity normal to inspection General Extremity: Negative for edema Skin no rashes or lesions noted Neuro deep tendon reflexes 2+ bilaterally Motor Exam: strength 5/5 throughout and clonus absent Psych mental status grossly normal Labs Labs Labs: 2 Blood Type A POSITIVE Antibody Screen NEGATIVE Hct 36.8 % (37-47) L Hgb 12.4 g/dL (12.0-15.0) Obstetrics US Syphilis Total Ab Non-reactive Rubella IgG Antibody Reactive (Nonreactive) Hep Bs Antigen Non-Reactive (Nonreactive) HIV 1&2 Antibody Non-Reactive (Nonreactive) Glucose 1 Hr 50 gm 94 mg/dL (70-140) Group B Strep DNA Negative (Negative) Rhogam given: No Miscellaneous Test Assessment & Plan (1) History of tetanus, diphtheria, and acellular pertussis booster vaccination (Tdap): COMMENT: 09/04/2021 (2) Anxiety: COMMENT: 08/07 zoloft start; stable (3) Lab test positive for detection of COVID-19 virus: COMMENT: 81mg asa 32 & 36 wk US; sched w MFM-Growth normal on 07/20 (4) Abnormal glucose affecting : COMMENT: 3 hr nl (5) Obesity affecting : QUALIFIERS: Trimester: second trimester Qualified Code(s): O99.212 - Obesity complicating , second trimester (6) Supervision of high risk , antepartum: COMMENT: PRR SURI: 10/20/21 boy Tommie PC: Vitor Spouse: Will (7) : QUALIFIERS: Weeks of gestation: 37 weeks Qualified Code(s): Z3A.37 - 37 weeks gestation of COMMENT: declines genetic and carrier screening, ntd screen. anatomy nl. GBS neg (8) History of premature delivery: COMMENT: 32 wk stat c section; prometrium vaginal supp q hs and CL's starting at 16 weeks, 2/ nl CL serial growth US @ 4 wks , 06/22 growth nl pt would like to do steroids at time of viability and then repeat after 30 weeks. plan to do GCT first. (9) History of : COMMENT: plan RLTCS (10) Active labor at term: COMMENT: declined proceed with RLTCS PLAN: Plan proceed with RLTCS
--- NOTE | 2021-09-28 14:05 | OP.PCM_ITS ---
Assessment & Plan (1) History of : COMMENT: plan RLTCS (2) History of premature delivery: COMMENT: 32 wk stat c section; prometrium vaginal supp q hs and CL's starting at 16 weeks, 2/ nl CL serial growth US @ 4 wks , 06/22 growth nl pt would like to do steroids at time of viability and then repeat after 30 weeks. plan to do GCT first. (3) : QUALIFIERS: Weeks of gestation: 37 weeks Qualified Code(s): Z3A.37 - 37 weeks gestation of COMMENT: declines genetic and carrier screening, ntd screen. anatomy nl. GBS neg (4) Supervision of high risk , antepartum: COMMENT: PRR SURI: 10/20/21 rebekah Reilly PC: Vitor Spouse: Will (5) Obesity affecting : QUALIFIERS: Trimester: second trimester Qualified Code(s): O99.212 - Obesity complicating , second trimester (6) Abnormal glucose affecting : COMMENT: 3 hr nl (7) Lab test positive for detection of COVID-19 virus: COMMENT: 81mg asa 32 & 36 wk US; sched w MFM-Growth normal on 07/20 (8) Anxiety: COMMENT: 5/ zoloft start; stable (9) History of tetanus, diphtheria, and acellular pertussis booster vaccination (Tdap): COMMENT: 09/04/2021 (10) Active labor at term: COMMENT: declined proceed with RLTCS (11) delivery delivered: COMMENT: 37 SM RLTCS rebekah Reilly IAL Maternal Data Information SURI Calculator Estimated Delivery Date Method Current WG Current Estimate 10/13/21 Ultrasound #1 38w 0d Other Estimates 10/20/21 LMP (Certain) 37w 0d Final SURI Source: LMP Gestational age: 39 Details Operative Information Date of Procedure: 09/28/21 Pre-Operative Diagnosis: IAL 3-4 cm with vaginal bleeding, declined TOLAC previous Post-Operative Diagnosis: same Indications for : Repeat Elective Classification: VÍCTOR Procedure Type: low 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 Patient was prepped and draped in the normal sterile fashion. Pfannenstiel skin incision was made with the scalpel and carried through to the underlying layer of fascia with the scalpel. Fascia was nicked in the midline and the incision extended laterally. The rectus bellies were dissected off superiorly and inferiorly with out complication both sharply and bluntly. omental to peritoneal adhesions were taken down and sutured with 3-0 monocryl. The peritoneum was entered digitally. The incision was stretched and a low transverse uterine incision was made with the scalpel and was noted to be thin. The infant's head was delivered atraumatically followed by the anterior and posterior shoulders without complication the rest of the infant delivered. The cord was clamped and cut and the infant was handed off to awaiting nurse. The placenta was delivered spontaneously immediately following and was noted to be intact and have a three- vessel cord. The uterus was exteriorized cleared of all clots and debris, and the incision was closed in a double layer closure using #1 Monocryl. additional sutures were needed on the right angle of the uterus due to the thin MALACHI that was over the uterine artery. The ovaries and fallopian tubes were noted to be within normal limits. The uterus was returned to the maternal abdomen and gutters were cleared of all clots and debris. The peritoneum was closed with 3-0 Monocryl in a running fashion. Gloves were changed prior to fascial closure. Fascia was closed with 0 PDS in a running fashion. Subcutaneous tissue was copiously irrigated and the skin was closed with 3-0 Monocryl in a subcuticular fashion. Mepilex dressing was applied without complication. Patient was taken to recovery in stable condition. It was discussed with the patient that based on the clinical information obtained during this encounter, combined with her history, at this time I would recommend vaginal or cesareans for future deliv eries if further pregnancies are desired. Amniotic Membrane Rupture Type: Artificial Amniotic Fluid Description: Clear Placental Delivery Description: Spontaneous Placenta Disposition: [facility] Cord Vessel Description: 3 Vessels Cord Entanglement: None Infant A Gender: Male Delayed Cord Clamping: Yes Complications Risks of Surgery Discussed w/Patient: Bleeding, Infection, Need for Future C- Sections and Injury to surrounding structure(s) including bowel and bladder Complications: none Admit VTE Documentation VTE Present on Admission: No VTE Mechan Device Prophylaxis: SCD's Procedures Urinary/Genital [id number]: [id number] Delivery global pkg
[2021-09-28 14:08] LABS: Chlamydia Trachomatis by PCR Negative (Negative); Neisserai gonorrhoeae by PCR Negative (Negative); Probe Check PASS; Sample Adequacy Control PASS; Specimen Processing Control PASS
--- NOTE | 2021-09-28 14:08 | DCINST_ITS ---
Discharge Instructions Diet Discharge Diet: No restrictions Activity Discharge Activity: Return to Normal Activity, May Drive (when pain free and off narcotic pain meds), May Shower and May Take a Tub Bath (in 4 weeks) May resume sexual activity in: 6 weeks Weight Bearing Status: Full weight bearing Lifting Restrictions: under 30 lbs for 6 weeks Dressing / Incision Call your doctor if your incision/area has: Continuous Slow Oozing, Sudden Increased Bleeding, Increased Pain/ Swelling, Increased Redness, Foul Smelling Discharge and - Call your doctor if you observe: Fever of 101 or Higher, Using more than 1 pad per hour, Shortness of breath, Chest pain and Uncontrolled pain Suture Line Care: Avoid Pulling/Pushing and Avoid Pinching/Bending Change Dressing in: 1 week (leave open to air after removed) Remove Dressing in: 1 week (if present) Cleanse incision/area with: Soap & Water and Keep Dressing Clean & Dry Follow Up Care Please Follow Up With: Bertha Mcgovern MD When: Call to make an appointment with your doctor for a postop visit in 2 and 6 weeks. Test Results: Test results from this visit will be discussed in further detail at your follow- up appointment, if applicable. Discharge Plan Admission Admit Date/Time: 09/28/21 10:40 Primary Reason for Your Visit: c section Attending Provider: Bertha Mcgovern Primary Care Provider: Care PhysicianRosanne Primary Discharge Orders/Prescriptions Prescriptions: New oxycodone-acetaminophen [Percocet] 5-325 mg tablet 1 tab PO Q6H PRN (Reason: pain) 7 Days Qty: 20 0RF naproxen [naproxen] 500 MG tablet 500 mg PO BID PRN PRN (Reason: Pain) Qty: 30 1RF No Action PNV #[id number] 30 mg iron-10 mg iron-1 mg capsule 1 cap PO DAILY aspirin 81 mg tablet,chewable 81 mg PO DAILY Referrals / Follow Up: Care Physician,Rosanne Primary [Primary Care Provider] -
[2021-09-28] MEDS: Cefazolin 2 GM in 0.9% Normal Saline 100 ML IV (14:15)
[2021-09-28] MEDS: Oxytocin 30 units/NS 500 ml 30 UNITS/500 ML IV.SOLN 167 UNITS IV (16:22)
[2021-09-28] MEDS: Ketorolac 30 MG/ML Syringe IV ×2 (16:22→21:31)
[2021-09-28 18:16] LABS: Hematocrit 34.3 % (37-47); Hemoglobin 11.3 g/dL (12.0-15.0); Mean Corp Hgb Conc 32.9 g/dL (32-36); Mean Corpuscular Hgb 31.1 pg (27.0-32.0); Mean Corpuscular Volume 94.5 fL (81-99); Mean Platelet Vol. 10.3 fl (6.2-12.0); Platelet Count 211 K/mm3 (150-450); RBC Distribution Width CV 12.5 % (11.6-14.6); RBC Distribution Width SD 43.3 fl (35.1-43.9); Red Blood Count 3.63 M/mm3 (4.2-5.4); White Blood Count 19.2 K/mm3 (4.4-11.0)
[2021-09-28] MEDS: Lactated Ringers 1,000 ML 100 ML IV (19:33)
--- NOTE | 2021-09-28 19:35 | NURSING ---
pt has indwelling urinary catheter
[2021-09-29 01:26] VITALS: PULSE 78; RESP 21; O2SAT 98
[2021-09-29] MEDS: Enoxaparin 40 MG/0.4 ML Syringe SC (03:41)
[2021-09-29] MEDS: Ketorolac 30 MG/ML Syringe IV (03:42)
[2021-09-29 03:45] VITALS: BP 101/58; PULSE 70; RESP 18; TEMP 36.7; O2SAT 100
[2021-09-29 04:20] LABS: Hematocrit 32.3 % (37-47); Hemoglobin 10.8 g/dL (12.0-15.0); Mean Corp Hgb Conc 33.4 g/dL (32-36); Mean Corpuscular Hgb 31.3 pg (27.0-32.0); Mean Corpuscular Volume 93.6 fL (81-99); Mean Platelet Vol. 10.1 fl (6.2-12.0); Platelet Count 215 K/mm3 (150-450); RBC Distribution Width CV 12.7 % (11.6-14.6); RBC Distribution Width SD 43.4 fl (35.1-43.9); Red Blood Count 3.45 M/mm3 (4.2-5.4); White Blood Count 14.8 K/mm3 (4.4-11.0)
[2021-09-29] MEDS: Acetaminophen 500 MG Tablet 1000 MG PO ×2 (05:19→13:17)
--- NOTE | 2021-09-29 07:15 | NURSING ---
report given to Karin Rendon RN who is assuming care of pt at this time
[2021-09-29 10:00] VITALS: BP 120/72; PULSE 70; RESP 16; TEMP 36.2; O2SAT 100
[2021-09-29] MEDS: Senna/Docusate Sodium 1 Tablet PO (10:27)
[2021-09-29] MEDS: 0.9% Saline Lock 10 ML Syringe IV (10:27)
[2021-09-29] MEDS: Naproxen 500 MG Tablet PO (10:37)
[2021-09-29 12:23] VITALS: BP 107/63; PULSE 84; RESP 14; TEMP 36.6
[2021-09-29 16:18] VITALS: BP 115/73; PULSE 87; RESP 16; TEMP 36.6
== END 2021-09-29 16:55 | disposition home or self-care (01) | DRG 788 ==
PROVIDERS: Admitting Provider Obstetrics & Gynecology; Visit Provider Obstetrics & Gynecology
DX: O34.211 Maternal care for low transverse scar from previous cesarean delivery (principal); O99.213 Obesity complicating pregnancy, third trimester; F41.9 Anxiety disorder, unspecified; Z37.0 Single live birth; O99.344 Other mental disorders complicating childbirth; Z3A.37 37 weeks gestation of pregnancy; Z79.82 Long term (current) use of aspirin; Z86.16 Personal history of COVID-19
CPT/HCPCS: 59025; 59050; 85025; 85027; 86850; 86900; 86901; 87426; 87491; 87591; 99218; J7120; A4216; G0378; J2405

== ENCOUNTER → 2023-02-17 | Outpatient (CLI) | payer OTHER, SELFPAY ==
--- NOTE | 2023-02-17 12:58 | US_ITS ---
EXAM: US PELVIS TRANSABDOMINAL AND TRANSVAGINAL, COMPLETE CLINICAL INDICATION: breakthrough bleeding -- with IUD TECHNIQUE: Transabdominal and endovaginal pelvic ultrasound was performed with grayscale and color Doppler imaging. Endovaginal imaging was used for better evaluation of the endometrium and adnexa. COMPARISON: No relevant prior studies available. FINDINGS: UTERUS/CERVIX: Uterus measures 7.2 x 4.7 x 3.3 cm. 3 mm endometrial thickness. RIGHT OVARY: Right ovary measures 4.4 x 3.9 x 3.7 cm and contains a dominant 3.6 cm complex cyst which may represent corpus luteum/hemorrhagic cyst. Blood flow is present in the right ovary. LEFT OVARY: Left ovary measures 2.0 x 1.3 x 1.0 cm. Blood flow is present in the left ovary. FREE FLUID: Physiological amount of free fluid noted within the pelvis. TUBES, LINES AND DEVICES: Intrauterine device (IUD) in the endometrial canal. US/Pelvic (Non ) IMPRESSION: 1. 3.6 cm right ovarian corpus luteum/hemorrhagic cyst. 2. IUD within the endometrial cavity. Electronically Signed: Charles Freitas MD at 11:04 EST ,
== END | disposition home or self-care (01) ==
LOC: OPUS 12:57
PROVIDERS: PCP Family Medicine; Referring Provider Obstetrics & Gynecology; Visit Provider Obstetrics & Gynecology
DX: N92.1 Excessive and frequent menstruation with irregular cycle (principal)
CPT/HCPCS: 76830; 76856